=== PATIENT | female | born 1955 | race American Indian/Alaskan Native ===

== ENCOUNTER 2020-09-24 00:01 | Inpatient (IN) | payer MEDICARE ==
[2020-09-24] MEDS ORDERED: ASPIRIN 325 MG TAB PO ONE (01:15)
--- NOTE | 2020-09-24 01:53 | XRay Report ---
CHEST 1 VIEW INDICATION: Shortness of breath COMPARISON: FINDINGS: SUPPORT DEVICES: None. HEART / MEDIASTINUM: No significant abnormality. LUNGS / PLEURA: Airspace process left lower lobe with associated left pleural effusion No pneumothora x. ADDITIONAL FINDINGS: IMPRESSION: 1. Left lower lobe pneumonia with associated left pleural effusion Signer Name: Matthew Mcneal MD Signed: 09/24/2020 1:48 AM Workstation Name: [id number]
[2020-09-24 02:07] LABS: Basophils # (Auto) 0.1 K/mm3 (0.0-0.1); Basophils % (Auto) 1.3 % (0.0-1.8); Eosinophils # (Auto) 0.1 K/mm3 (0.0-0.4); Eosinophils % (Auto) 0.6 % (0.0-4.3); Hematocrit 43.7 % (30.3-42.9); Hemoglobin 14.5 gm/dl (10.1-14.3); Lymphocytes # (Auto) 2.2 K/mm3 (1.2-5.4); Lymphocytes % (Auto) 22.9 % (13.4-35.0); Mean Corpuscular HGB Conc 33 % (30-34); Mean Corpuscular Volume 93 fl (79-97); Monocytes # (Auto) 1.1 K/mm3 (0.0-0.8); Monocytes % (Auto) 11.4 % (0.0-7.3); Red Blood Count 4.71 M/mm3 (3.65-5.03); Red Cell Distribution Width 15.8 % (13.2-15.2)
[2020-09-24 02:30] LABS: Albumin 2.9 g/dL (3.9-5); Calcium 8.5 mg/dL (8.4-10.2)
[2020-09-24 02:38] LABS: Platelet Count 412 K/mm3 (140-440)
[2020-09-24 02:49] LABS: C-Reactive Protein 3.3 mg/dL (0.00-1.30)
[2020-09-24 03:12] LABS: Chol/HDL Ratio 3.92 %
[2020-09-24] MEDS ORDERED: ASPIRIN 81 MG TAB CHEW PO ONE (03:26)
--- NOTE | 2020-09-24 03:26 | Emergency Department Report ---
ED General Adult HPI - General Chief complaint: Dyspnea/Respdistress Stated complaint: DYSPNEA PUI?: Yes Time Seen by Provider: 09/24/20 03:13 Source: patient, RN notes reviewed Mode of arrival: Wheelchair Limitations: Physical Limitation - History of Present Illness Initial comments: The patient was evaluated in the emergency department for symptoms described in the history of present illness. He/she was evaluated in the context of the global COVID-19 pandemic, which necessitated consideration that the patient might be at risk for infection with the virus that causes COVID-19. Institutional protocols and algorithms that pertain to the evaluation of patients at risk for COVID-19 are in a state of rapid change based on information released by regulatory bodies including the CDC and federal and state organizations. These policies and algorithms were followed during the patient's care in the emergency department. Please note that these policies, procedures and recommendations changed on a rapid basis. During the entire history and physical examination, I have on complete personal protective equipment. The patient is a 65-year-old female. She is visiting from [place]. Her past medical history includes arthritis, renal cancer, distant history of left nephrectomy, diabetes, migraines, heart disease/angina, hypertension, distant history of exploratory laparotomy secondary to traumatic accident. Patient has not had her COVID-19 vaccination. She presents to the ER with a complaint of shortness of breath, lower extremity swelling, left upper quadrant/left lateral thorax abdominal pain. She is not sure if she has had loss of taste or smell. She recently drove here from [place]. Denies headache and neck pain. Denies lower abdominal pain. Denies hematemesis and bright red blood per rectum. Does not have central chest pain per se. -: Gradual, days(s) Location: chest (Left lateral thorax), abdomen Radiation: non-radiation Quality: aching Consistency: constant Improves with: rest Worsens with: movement - Related Data Allergies Allergy/AdvReac Type Severity Reaction Status Date / Time Penicillins Allergy Unknown Verified 09/24/20 00:55 ED Review of Systems ROS: Stated complaint: SOB/BACK PAIN/LOSS OF VISION Other details as noted in HPI Constitutional: malaise, weakness Eyes: denies: eye discharge ENT: congestion Respiratory: shortness of breath Cardiovascular: dyspnea on exertion Gastrointestinal: abdominal pain. denies: hematemesis, melena, hematochezia Genitourinary: denies: dysuria Musculoskeletal: myalgia Neurological: weakness Hematological/Lymphatic: denies: easy bleeding ED Past Medical Hx - Past Medical History Previous Medical History?: Yes Hx Hypertension: Yes Hx Heart Attack/AMI: Yes (Angina) Hx Diabetes: Yes Hx of Cancer: Yes (Renal- left kidney removed) Hx Arthritis: Yes Hx Headaches / Migraines: Yes Additional medical history: Takes Gabapentin for Nerve pain, Sepsis - Surgical History Past Surgical History?: Yes Additional Surgical History: Left kidney removed, Spleen removed, Abdominal surgery with Sepsis ED Physical Exam - General Limitations: Physical Limitation General appearance: alert, anxious, obese - Head Head exam: Present: atraumatic, normocephalic - Eye Eye exam: Present: normal appearance, EOMI. Absent: nystagmus - ENT ENT exam: Present: normal exam, normal orophraynx, mucous membranes moist, normal external ear exam - Neck Neck exam: Present: normal inspection, full ROM. Absent: tenderness, meningismus - Respiratory Respiratory exam: Present: other (Pulmonary auscultation not performed secondary to lack of disposable stethoscope) - Cardiovascular Cardiovascular Exam: Present: other (Cardiac auscultation not performed secondary to lack of disposable stethoscope) - GI/Abdominal GI/Abdominal exam: Present: soft. Absent: distended, tenderness, guarding, rebound, rigid, pulsatile mass - Extremities Exam Extremities exam: Present: normal inspection, full ROM, pedal edema (2+ edema in the bilateral lower extremities), other (2+ pulses noted in the bilateral upper and lower extremities. There is no palpable cord. negative Homans sign. Muscular compartments are soft. The pelvis is stable.). Absent: calf tenderness - Back Exam Back exam: Present: normal inspection. Absent: tenderness, CVA tenderness (R), CVA tenderness (L), paraspinal tenderness, vertebral tenderness - Neurological Exam Neurological exam: Present: alert, other (No facial droop. Tongue midline. Extraocular movements intact bilaterally. Facial sensation intact to light touch in V1, V2, V3 distribution bilaterally. 5 and a 5 strength in 4 extremiti es. Sensation intact to light touch in 4 extremities.) - Psychiatric Psychiatric exam: Present: normal affect, normal mood - Skin Skin exam: Present: warm, dry, intact, normal color. Absent: rash ED Course Vital Signs 09/24/20 09/24/20 09/24/20 00:39 03:16 03:30 Temperature 99.4 F Pulse Rate 91 H 84 88 Respiratory 18 22 19 Rate Blood Pressure 193/105 208/94 208/94 O2 Sat by Pulse 87 95 Oximetry 09/24/20 09/24/20 09/24/20 03:46 03:57 04:00 Temperature Pulse Rate 90 86 Respiratory 12 19 13 Rate Blood Pressure 208/94 190/118 O2 Sat by Pulse 96 91 Oximetry 09/24/20 09/24/20 09/24/20 04:16 04:29 04:30 Temperature 98.5 F Pulse Rate 84 86 Respiratory 13 13 Rate Blood Pressure 220/114 220/114 O2 Sat by Pulse 89 87 Oximetry 09/24/20 09/24/20 09/24/20 04:45 04:46 04:51 Temperature Pulse Rate 83 84 Respiratory 24 16 Rate Blood Pressure 220/114 220/114 O2 Sat by Pulse 97 Oximetry 09/24/20 09/24/20 05:00 05:16 Temperature Pulse Rate 89 85 Respiratory 22 18 Rate Blood Pressure 200/100 179/78 O2 Sat by Pulse 88 94 Oximetry - Reevaluation(s) Reevaluation #1: 09/24/20 04:34 DVT study preliminarily negative Reevaluation #2: 09/24/20 05:34 DVT study negative ED Medical Decision Making - Lab Data Result diagrams: 09/24/20 01:24 09/24/20 01:47 Vital Signs 09/24/20 00:39 Temperature 99.4 F Pulse Rate 91 H Respiratory 18 Rate Blood Pressure 193/105 O2 Sat by Pulse 87 Oximetry Lab Results 09/24/20 09/24/20 09/24/20 Range/Units 01:24 01:24 01:47 WBC 9.4 (4.5-11.0) K/mm3 RBC 4.71 (3.65-5.03) M/mm3 Hgb 14.5 H (10.1-14.3) gm/dl Hct 43.7 H (30.3-42.9) % MCV 93 (79-97) fl MCH 31 (28-32) pg MCHC 33 (30-34) % RDW 15.8 H (13.2-15.2) % Plt Count 412 (140-440) K/mm3 Lymph % (Auto) 22.9 (13.4-35.0) % [place] % (Auto) 11.4 H (0.0-7.3) % Eos % (Auto) 0.6 (0.0-4.3) % Baso % (Auto) 1.3 (0.0-1.8) % Lymph # (Auto) 2.2 (1.2-5.4) K/mm3 [place] # (Auto) 1.1 H (0.0-0.8) K/mm3 Eos # (Auto) 0.1 (0.0-0.4) K/mm3 Baso # (Auto) 0.1 (0.0-0.1) K/mm3 Seg Neutrophils % 63.8 (40.0-70.0) % Seg Neutrophils # 6.0 (1.8-7.7) K/mm3 D-Dimer 804.52 H (0-234) ng/mlDDU Sodium 144 (137-145) mmol/L Potassium 3.9 (3.6-5.0) mmol/L Chloride 105.2 (98-107) mmol/L Carbon Dioxide 27 (22-30) mmol/L Anion Gap 16 mmol/L BUN 14 (7-17) mg/dL Creatinine 1.1 (0.6-1.2) mg/dL Estimated GFR 60 ml/min BUN/Creatinine Ratio 13 % Glucose 210 H (65-100) mg/dL Calcium 8.5 (8.4-10.2) mg/dL Magnesium (1.7-2.3) mg/dL Ferritin (10.0-200.0) ng/mL Total Bilirubin 0.30 (0.1-1.2) mg/dL AST 15 (5-40) units/L ALT 16 (7-56) units/L Alkaline Phosphatase 123 (35-129) units/L Lactate Dehydrogenase (91-180) units/L Total Creatine Kinase (30-135) units/L Troponin T 0.350 H* (0.00-0.029) ng/mL C-Reactive Protein (0.00-1.30) mg/dL NT-Pro-B Natriuret Pep (0-900) pg/mL Total Protein 5.9 L (6.3-8.2) g/dL Albumin 2.9 L (3.9-5) g/dL Albumin/Globulin Ratio 1.0 % Triglycerides 123 (2-149) mg/dL Cholesterol 224 H (50-199) mg/dL LDL Cholesterol Direct 155 H (50-130) mg/dL HDL Cholesterol 57 (40-59) mg/dL Cholesterol/HDL Ratio 3.92 % 09/24/20 09/24/20 Range/Units 01:47 01:47 WBC (4.5-11.0) K/mm3 RBC (3.65-5.03) M/mm3 Hgb (10.1-14.3) gm/dl Hct (30.3-42.9) % MCV (79-97) fl MCH (28-32) pg MCHC (30-34) % RDW (13.2-15.2) % Plt Count (140-440) K/mm3 Lymph % (Auto) (13.4-35.0) % [place] % (Auto) (0.0-7.3) % Eos % (Auto) (0.0-4.3) % Baso % (Auto) (0.0-1.8) % Lymph # (Auto) (1.2-5.4) K/mm3 [place] # (Auto) (0.0-0.8) K/mm3 Eos # (Auto) (0.0-0.4) K/mm3 Baso # (Auto) (0.0-0.1) K/mm3 Seg Neutrophils % (40.0-70.0) % Seg Neutrophils # (1.8-7.7) K/mm3 D-Dimer (0-234) ng/mlDDU Sodium (137-145) mmol/L Potassium (3.6-5.0) mmol/L Chloride (98-107) mmol/L Carbon Dioxide (22-30) mmol/L Anion Gap mmol/L BUN (7-17) mg/dL Creatinine (0.6-1.2) mg/dL Estimated GFR ml/min BUN/Creatinine Ratio % Glucose 221 H (65-100) mg/dL Calcium (8.4-10.2) mg/dL Magnesium 1.80 (1.7-2.3) mg/dL Ferritin 31.5 (10.0-200.0) ng/mL Total Bilirubin (0.1-1.2) mg/dL AST (5-40) units/L ALT (7-56) units/L Alkaline Phosphatase (35-129) units/L Lactate Dehydrogenase 344 H (91-180) units/L Total Creatine Kinase 102 (30-135) units/L Troponin T (0.00-0.029) ng/mL C-Reactive Protein 3.30 H (0.00-1.30) mg/dL NT-Pro-B Natriuret Pep 8271 H (0-900) pg/mL Total Protein (6.3-8.2) g/dL Albumin (3.9-5) g/dL Albumin/Globulin Ratio % Triglycerides (2-149) mg/dL Cholesterol (50-199) mg/dL LDL Cholesterol Direct (50-130) mg/dL HDL Cholesterol (40-59) mg/dL Cholesterol/HDL Ratio % - EKG Data -: EKG Interpreted by Ok EKG shows normal: sinus rhythm Rate: normal - EKG Data When compared to previous EKG there are: previous EKG unavailable 09/24/20 03:25 EKG interpreted at 01: 57 Sinus rhythm, 85 bpm. Borderline leftward axis deviation, left ventricular hypertrophy, atrial enlargement, motion artifact, not a STEMI, no prior for comparison. DE interval within normal limits. - Radiology Data Radiology results: report reviewed, image reviewed [facility] [address] [place] [address] XRay Report Signed Patient: YAA WRIGHT MR#: [id number] : 1955 Acct:[id number] Age/Sex: 65 / F ADM Date: 09/24/20 Loc: ED Attending Dr: Ordering Physician: JOSAFAT LIANG MD Date of Service: 09/24/20 Procedure(s): XR chest 1V ap Accession Number(s): [id number] cc: JOSAFAT LIANG MD Fluoro Time In Minutes: CHEST 1 VIEW INDICATION: Shortness of breath COMPARISON: FINDINGS: SUPPORT DEVICES: None. HEART / MEDIASTINUM: No significant abnormality. LUNGS / PLEURA: Airspace process left lower lobe with associated left pleural effusion No pneumothorax. ADDITIONAL FINDINGS: IMPRESSION: 1. Left lower lobe pneumonia with associated left pleural effusion Signer Name: Matthew Mcneal MD Signed: 09/24/2020 1:48 AM Workstation Name: [id number] Transcribed By: SANTA Dictated By: Matthew Mcneal MD Electronically Authenticated By: Matthew Mcneal MD Signed Date/Time: 09/24/20147 DD/ 7 - Medical Decision Making Differential diagnosis, including but not limited to: Pneumonia, COVID-19, DVT, pulmonary embolism, cardiomyopathy, fluid overload, hypertension, hypertensive cardiomyopathy, type II troponin leak, hypoxic respiratory failure Assessment and plan: 65-year-old female with low-grade temperature, acute hypoxic respiratory failure, large left-sided pneumonia with pleural effusion on x-ray the chest, with hypertension, elevated troponin, no complaints of ischemic sounding chest pain, abnormal EKG, elevated proBNP, and lower extremity edema. Place patient on classroom monitor, IV access, supplemental oxygen, obtain appropriate laboratory studies, and initiate isolation. Start aspirin, unfractionated heparin, antihypertensive therapy for elevated t roponin, and hypertension. Admit patient to the medical service for the aforementioned. Start steroids, administer Levaquin, and start acetaminophen. Have discussed this plan of care with the patient for admission for the aforementioned. We will also obtain bilateral lower extremity DVT study. Patient has history of nephrectomy, therefore she only has 1 kidney. In addition, she is in acute respiratory distress, and is not able to lay flat. Therefore, patient will need to be medically optimized/stabilized, prior to acquisition of CT scan of the chest, or nuclear medicine study; we will defer to inpatient team to decide what thoracic imaging they would like to obtain, if any. Patient does meet criteria for admission and hospitalization secondary to the aforementioned. Patient is amenable to admission. Hospital physician, Dr. Valdes, to admit to [facility] Critical Care Time: Yes Critical care time in (mins) excluding proc time.: 35 Critical care attestation.: If time is entered above; I have spent that time in minutes in the direct care of this critically ill patient, excluding procedure time. ED Disposition Clinical Impression: Acute respiratory failure with hypoxia, Left lower lobe pneumonia, Suspected COVID-19 virus infection, Elevated troponin, Swelling of lower extremity Disposition: OP ADMIT IP TO THIS HOSP Is pt being admited?: Yes Does the pt Need Aspirin: Yes Condition: Stable
[2020-09-24] MEDS ORDERED: HEPARIN 10,000 UNITS/10 ML VIAL IV PRN (03:27)
[2020-09-24] MEDS ORDERED: ACETAMINOPHEN 325 MG TAB PO STA (03:27)
[2020-09-24] MEDS ORDERED: HEPARIN 10,000 UNITS/10 ML VIAL IV ONE (03:27)
[2020-09-24] MEDS ORDERED: dexAMETHasone 4 MG/ML VIAL IV ONE (03:27)
[2020-09-24] MEDS: HEPARIN/ 0.45% NACL DRIP 25,000 UNIT/500 ML BAG IV SCH (03:48)
[2020-09-24 04:02] LABS: INR 0.95 (0.87-1.13)
[2020-09-24 04:03] LABS: Partial Thromboplastin Time 28.3 Sec. (24.2-36.6)
[2020-09-24] MEDS ORDERED: hydrALAZINE 20 MG/1 ML INJ IV ONE (04:28)
[2020-09-24] MEDS ORDERED: FUROSEMIDE 20 MG/2 ML INJ IV ONE (04:28)
[2020-09-24] MEDS ORDERED: DEXTROSE 50% IN WATER (25GM) 50 ML SYRINGE IV PRN (05:09)
[2020-09-24] MEDS ORDERED: ACETAMINOPHEN 325 MG TAB PO PRN ×2 (05:09)
[2020-09-24] MEDS ORDERED: ALBUTEROL 2.5 MG/3 ML NEBU IH PRN (05:09)
[2020-09-24] MEDS ORDERED: NITROGLYCERIN 0.4 MG TAB SUBL SL PRN (05:09)
[2020-09-24] MEDS ORDERED: ONDANSETRON 4 MG/2 ML INJ IV PRN (05:09)
[2020-09-24] MEDS ORDERED: hydrALAZINE 20 MG/1 ML INJ IV PRN (05:14)
--- NOTE | 2020-09-24 05:19 | History and Physical Report ---
History of Present Illness Date of examination: 09/24/20 Date of admission: 09/24/20 04:33 Chief complaint: Dyspnea respiratory distress History of present illness: 65-year-old female with past medical history includes arthritis, renal cancer, distant history of left nephrectomy, diabetes, migraines, heart disease/angina, hypertension, distant history of exploratory laparotomy secondary to traumatic accident was brought to the emergency room because of shortness of breath, lower extremity swelling, left upper quadrant/left lateral thorax abdominal pain. She is not sure if she has had loss of taste or smell. She recently drove here from [place]. Denies headache and neck pain. Denies lower abdominal pain. Denies hematemesis and bright red blood per rectum. Patient has not had her COVID-19 vaccination. In the emergency room patient is found to have acute hypoxic respiratory failure. Also patient troponin is 0.350 proBNP 8271 and C-reactive protein 3.30. Chest x-ray shows left lower lobe pneumonia with associated left pleural effusion Past History Past Medical History: arthritis, CAD, diabetes, hypertension (Renal cancer status post left nephrectomy distant history of exploratory laparotomy), other (Renal cancer left nephrectomy) Medications and Allergies Allergies Allergy/AdvReac Type Severity Reaction Status Date / Time Penicillins Allergy Unknown Verified 09/24/20 00:55 Active Meds: Active Medications Heparin Sodium (Porcine) (Heparin 10,000 Units/10 Ml Vial) 3,000 unit 40 unit/kg (3000 unit) IV Q6H PRN PRN Reason: Anti-Xa Assay < 0.1 units/ml Heparin Sodium/Sodium Chloride (Heparin/ 0.45% Nacl-25,000 Unit/500 Ml) 25,000 unit in 500 mls @ 20 mls/hr IV TITRATE ANG; Protocol Last Admin: 09/24/20 03:48 Dose: 1,000 units/hr, 20 mls/hr Documented by: Review of Systems Cardiovascular: shortness of breath, dyspnea on exertion Respiratory: shortness of breath, dyspnea on exertion Gastrointestinal: abdominal pain Exam - Constitutional Vitals: Temp Pulse Resp BP Pulse Ox 98.5 F 89 22 200/100 88 09/24/20 04:29 09/24/20 05:00 09/24/20 05:00 09/24/20 05:00 09/24/20 05:00 General appearance: Present: no acute distress, well-nourished - EENT Eyes: Present: PERRL ENT: hearing intact, clear oral mucosa - Neck Neck: Present: supple, normal ROM - Respiratory Respiratory effort: normal Respiratory: bilateral: CTA - Cardiovascular Heart Sounds: Present: S1 & S2. Absent: rub, click - Extremities Extremities: pulses symmetrical, No edema Peripheral Pulses: within normal limits - Abdominal General gastrointestinal: Present: soft, non-tender, non-distended, normal bowel sounds Female genitourinary: Present: normal - Integumentary Integumentary: Present: clear, warm, dry - Musculoskeletal Musculoskeletal: gait normal, strength equal bilaterally - Psychiatric Psychiatric: appropriate mood/affect, intact judgment & insight - Neurologic Neurologic: CNII-XII intact, moves all extremities HEART Score - HEART Score Troponin: Troponin T 0.350 ng/mL (0.00-0.029) H* 09/24/20 01:24 Results - Labs CBC & Chem 7: 09/24/20 01:24 09/24/20 01:47 Labs: Laboratory Last Values WBC 9.4 K/mm3 (4.5-11.0) 09/24/20 01:24 RBC 4.71 M/mm3 (3.65-5.03) 09/24/20 01:24 Hgb 14.5 gm/dl (10.1-14.3) H 09/24/20 01:24 Hct 43.7 % (30.3-42.9) H 09/24/20 01:24 MCV 93 fl (79-97) 09/24/20 01:24 MCH 31 pg (28-32) 09/24/20 01:24 MCHC 33 % (30-34) 09/24/20 01:24 RDW 15.8 % (13.2-15.2) H 09/24/20 01:24 Plt Count 412 K/mm3 (140-440) 09/24/20 01:24 Lymph % (Auto) 22.9 % (13.4-35.0) 09/24/20 01:24 [place] % (Auto) 11.4 % (0.0-7.3) H 09/24/20 01:24 Eos % (Auto) 0.6 % (0.0-4.3) 09/24/20 01:24 Baso % (Auto) 1.3 % (0.0-1.8) 09/24/20 01:24 Lymph # (Auto) 2.2 K/mm3 (1.2-5.4) 09/24/20 01:24 [place] # (Auto) 1.1 K/mm3 (0.0-0.8) H 09/24/20 01:24 Eos # (Auto) 0.1 K/mm3 (0.0-0.4) 09/24/20 01:24 Baso # (Auto) 0.1 K/mm3 (0.0-0.1) 09/24/20 01:24 Seg Neutrophils % 63.8 % (40.0-70.0) 09/24/20 01:24 Seg Neutrophils # 6.0 K/mm3 (1.8-7.7) 09/24/20 01:24 PT 12.6 Sec. (12.2-14.9) 09/24/20 03:37 INR 0.95 (0.87-1.13) 09/24/20 03:37 APTT 28.3 Sec. (24.2-36.6) 09/24/20 03:37 D-Dimer 804.52 ng/mlDDU (0-234) H 09/24/20 01:47 Sodium 144 mmol/L (137-145) 09/24/20 01:24 Potassium 3.9 mmol/L (3.6-5.0) 09/24/20 01:24 Chloride 105.2 mmol/L (98-107) 09/24/20 01:24 Carbon Dioxide 27 mmol/L (22-30) 09/24/20 01:24 Anion Gap 16 mmol/L 09/24/20 01:24 BUN 14 mg/dL (7-17) 09/24/20 01:24 Creatinine 1.1 mg/dL (0.6-1.2) 09/24/20 01:24 Estimated GFR 60 ml/min 09/24/20 01:24 BUN/Creatinine Ratio 13 % 09/24/20 01:24 Glucose 221 mg/dL (65-100) H 09/24/20 01:47 Lactic Acid 1.40 mmol/L (0.7-2.0) 09/24/20 03:37 Calcium 8.5 mg/dL (8.4-10.2) 09/24/20 01:24 Magnesium 1.80 mg/dL (1.7-2.3) 09/24/20 01:47 Ferritin 31.5 ng/mL (10.0-200.0) 09/24/20 01:47 Total Bilirubin 0.30 mg/dL (0.1-1.2) 09/24/20 01:24 AST 15 units/L (5-40) 09/24/20 01:24 ALT 16 units/L (7-56) 09/24/20 01:24 Alkaline Phosphatase 123 units/L (35-129) 09/24/20 01:24 Lactate Dehydrogenase 344 units/L (91-180) H 09/24/20 01:47 Total Creatine Kinase 102 units/L (30-135) 09/24/20 01:47 Troponin T 0.350 ng/mL (0.00-0.029) H* 09/24/20 01:24 C-Reactive Protein 3.30 mg/dL (0.00-1.30) H 09/24/20 01:47 NT-Pro-B Natriuret Pep 8271 pg/mL (0-900) H 09/24/20 01:47 Total Protein 5.9 g/dL (6.3-8.2) L 09/24/20 01:24 Albumin 2.9 g/dL (3.9-5) L 09/24/20 01:24 Albumin/Globulin Ratio 1.0 % 09/24/20 01:24 Triglycerides 123 mg/dL (2-149) 09/24/20 01:24 Cholesterol 224 mg/dL (50-199) H 09/24/20 01:24 LDL Cholesterol Direct 155 mg/dL (50-130) H 09/24/20 01:24 HDL Cholesterol 57 mg/dL (40-59) 09/24/20 01:24 Cholesterol/HDL Ratio 3.92 % 09/24/20 01:24 - Imaging and Cardiology Chest x-ray: report reviewed Assessment and Plan VTE prophylaxis?: Chemical Plan of care discussed with patient/family: Yes - Patient Problems (1) Acute respiratory failure with hypoxia Current Visit: Yes Status: Acute Plan to address problem: Admit the patient to the medical telemetry. Oxygen via nasal cannula 3 L/min. DuoNeb by nebulizer every 4 hours as needed. Levaquin 750 mg IV daily. Dexamethasone 6 mg IV daily. We will consult infectious disease for evaluation. Consult pulmonary if needed (2) Left lower lobe pneumonia Current Visit: Yes Status: Acute Plan to address problem: Oxygen via nasal cannula 3 L/min. DuoNeb by nebulizer every 4 hours as needed. Levaquin 750 mg IV daily. Dexamethasone 6 mg IV daily. We will consult infectious disease for evaluation. Consult pulmonary if needed (3) Suspected COVID-19 virus infection Current Visit: Yes Status: Acute Plan to address problem: Oxygen via nasal cannula 3 L/min. DuoNeb by nebulizer every 4 hours as needed. Levaquin 750 mg IV daily. Dexamethasone 6 mg IV daily. We will consult infectious disease for evaluation. Consult pulmonary if needed (4) Elevated troponin Current Visit: Yes Status: Acute Plan to address problem: Aspirin 325 mg p.o. daily. Lipitor 40 mg p.o. daily. Nitroglycerin as needed. Heparin drip as per protocol .we do the serial cardiac enzyme. We also do echocardiogram and consult cardiology for evaluation (5) Hypertension Current Visit: Yes Status: Acute Plan to address problem: Hydralazine 10 mg IV every 6 hours as needed. We will monitor the blood pressure closely. (6) Diabetes Current Visit: Yes Status: Acute Plan to address problem: We will put the patient on 1800 kcal ADA diet. Humalog sliding scale moderate d ose with Accu-Chek before meals and at bedtime. Diabetic education (7) DVT prophylaxis Current Visit: Yes Status: Acute Plan to address problem: Heparin drip for DVT prophylaxis. Pepcid 20 mg p.o. twice daily for GI prophylaxis. Patient is a full code
--- NOTE | 2020-09-24 05:27 | Vascular Lab Report ---
DUPLEX DOPPLER LOWER EXTREMITY VEINS, BILATERAL INDICATION / CLINICAL INFORMATION: lower ext swelling + d dimer. TECHNIQUE: Duplex doppler imaging was performed through the veins of both lower extremities using venous starr gurvinder and other maneuvers. COMPARISON: None available. FINDINGS: RIGHT COMMON FEMORAL VEIN: Negative. RIGHT FEMORAL VEIN: Negative. RIGHT POPLITEAL VEIN: Negative. RIGHT CALF VEINS: Negative. LEFT COMMON FEMORAL VEIN: Negative. LEFT FEMORAL VEIN: Negative. LEFT POPLITEAL VEIN: Negative. LEFT CALF VEINS: Negative. ADDITIONAL FINDINGS: Bilateral popliteal cyst are present, 3.9 cm on the right and 4.5 cm on the left . IMPRESSION: 1. No sonographic evidence for DVT in either lower extremity. Signer Name: Matthew Mcneal MD Signed: 09/24/2020 5:22 AM Workstation Name: [id number]
[2020-09-24] MEDS ORDERED: cefTRIAXone/NS 2 GM/100 ML 2 GM/100 ML BAG IV SCH (06:00)
[2020-09-24] MEDS ORDERED: HEPARIN 5,000 UNIT/1 ML VIAL SUB-Q SCH (06:00)
[2020-09-24] MEDS ORDERED: AZITHROMYCIN/NS 500 MG/250 ML 500 MG/250 ML BAG IV SCH (06:00)
[2020-09-24 06:47] LABS: Basophils # (Auto) 0.1 K/mm3 (0.0-0.1); Eosinophils # (Auto) 0.1 K/mm3 (0.0-0.4); Eosinophils % (Auto) 0.6 % (0.0-4.3); Hematocrit 44.5 % (30.3-42.9); Hemoglobin 14.5 gm/dl (10.1-14.3); Lymphocytes # (Auto) 0.8 K/mm3 (1.2-5.4); Lymphocytes % (Auto) 7.9 % (13.4-35.0); Mean Corpuscular HGB Conc 33 % (30-34); Mean Corpuscular Volume 91 fl (79-97); Monocytes # (Auto) 0.2 K/mm3 (0.0-0.8); Monocytes % (Auto) 2.3 % (0.0-7.3); Red Blood Count 4.87 M/mm3 (3.65-5.03); Red Cell Distribution Width 15.1 % (13.2-15.2)
[2020-09-24 06:55] LABS: Platelet Count 436 K/mm3 (140-440)
[2020-09-24 06:59] LABS: BUN/Creatinine Ratio 14; Blood Urea Nitrogen 14 mg/dL (7-17); Hemolysis Index 4
[2020-09-24] MEDS: IPRATROPIUM/ALBUTEROL SULFATE 3 ML AMPUL.NEB IH SCH ×3 (08:51→19:32)
--- NOTE | 2020-09-24 10:28 | Progress Note ---
Assessment and Plan Assessment and plan: -- Acute respiratory failure with hypoxia Current Visit: Yes Status: Acute Oxygen via nasal cannula 3 L/min. DuoNeb by nebulizer every 4 hours as needed. Levaquin 750 mg IV daily. Dexamethasone 6 mg IV daily. Evaluate for COVID-19 --Left lower lobe pneumonia Current Visit: Yes Status: Acute Oxygen via nasal cannula 3 L/min. Empiric antibiotics, inhalers and nebulizers Follow cultures supportive care -- Suspected COVID-19 virus infection Current Visit: Yes Status: Acute Isolation precautions and PPE protocols oxygen via nasal cannula 3 L/min. Home O2 evaluation at discharge --Non-ST elevation ID ;elevated troponin Current Visit: Yes Status: Acute Aspirin 325 mg p.o. daily. Beta-blockers ,Lipitor 40 mg p.o. daily. Nitroglycerin as needed. Heparin drip as per protocol .cardiology evaluation noted and appreciated Recommend left heart catheterization ,if COVID-19 is negative and patient CTA chest is negative --Hypertension Current Visit: Yes Status: Acute Hydralazine 10 mg IV every 6 hours as needed. We will monitor the blood pressure closely. --Type II diabetes Current Visit: Yes Status: Acute Accu-Chek sliding scale coverage ADA diet and insulin as needed Diabetic education nutrition education as indicated --DVT prophylaxis Current Visit: Yes Status: Acute Heparin drip for DVT prophylaxis. Pepcid 20 mg p.o. twice daily for GI prophylaxis. Patient is a full code Monitor the patient and adjust management as needed Plan of care reviewed with the patient and his nurse I also discussed with senior telecommunications engineer Dr. Sunny Hua Plans heart cath tomorrow if CTA chest is normal and Covid test is negative History Interval history: I have seen and examined the patient at the bedside Patient's chart and medications reviewed patient was Patient is confused and agitated at times Not in acute distress Vital signs stable Hospitalist Physical - Constitutional Vitals: Temp Pulse Resp BP Pulse Ox 98.5 F 82 16 179/78 92 09/24/20 04:29 09/24/20 08:50 09/24/20 08:50 09/24/20 05:16 09/24/20 08:51 General appearance: Present: no acute distress, well-nourished - EENT Eyes: Present: PERRL, EOM intact - Neck Neck: Present: supple, normal ROM - Respiratory Respiratory effort: normal Respiratory: bilateral: diminished, negative: rales, rhonchi, wheezing - Cardiovascular Rhythm: regular Heart Sounds: Present: S1 & S2 - Extremities Extremities: no ischemia, No edema - Abdominal General gastrointestinal: soft, non-tender, non-distended, normal bowel sounds - Integumentary Integumentary: Present: clear, warm - Psychiatric Psychiatric: appropriate mood/affect, cooperative - Neurologic Neurologic: CNII-XII intact, moves all extremities HEART Score - HEART Score Troponin: Troponin T 0.350 ng/mL (0.00-0.029) H* 09/24/20 01:24 Results - Labs CBC & Chem 7: 09/24/20 06:18 09/24/20 06:18 Labs: Laboratory Last Values WBC 10.0 K/mm3 (4.5-11.0) 09/24/20 06:18 RBC 4.87 M/mm3 (3.65-5.03) 09/24/20 06:18 Hgb 14.5 gm/dl (10.1-14.3) H 09/24/20 06:18 Hct 44.5 % (30.3-42.9) H 09/24/20 06:18 MCV 91 fl (79-97) 09/24/20 06:18 MCH 30 pg (28-32) 09/24/20 06:18 MCHC 33 % (30-34) 09/24/20 06:18 RDW 15.1 % (13.2-15.2) 09/24/20 06:18 Plt Count 436 K/mm3 (140-440) 09/24/20 06:18 Lymph % (Auto) 7.9 % (13.4-35.0) L 09/24/20 06:18 [place] % (Auto) 2.3 % (0.0-7.3) 09/24/20 06:18 Eos % (Auto) 0.6 % (0.0-4.3) 09/24/20 06:18 Baso % (Auto) 1.0 % (0.0-1.8) 09/24/20 06:18 Lymph # (Auto) 0.8 K/mm3 (1.2-5.4) L 09/24/20 06:18 [place] # (Auto) 0.2 K/mm3 (0.0-0.8) 09/24/20 06:18 Eos # (Auto) 0.1 K/mm3 (0.0-0.4) 09/24/20 06:18 Baso # (Auto) 0.1 K/mm3 (0.0-0.1) 09/24/20 06:18 Seg Neutrophils % 88.2 % (40.0-70.0) H 09/24/20 06:18 Seg Neutrophils # 8.8 K/mm3 (1.8-7.7) H 09/24/20 06:18 PT 12.6 Sec. (12.2-14.9) 09/24/20 03:37 INR 0.95 (0.87-1.13) 09/24/20 03:37 APTT 28.3 Sec. (24.2-36.6) 09/24/20 03:37 D-Dimer 804.52 ng/mlDDU (0-234) H 09/24/20 01:47 Sodium 139 mmol/L (137-145) 09/24/20 06:18 Potassium 3.1 mmol/L (3.6-5.0) L D 09/24/20 06:18 Chloride 101.6 mmol/L (98-107) 09/24/20 06:18 Carbon Dioxide 27 mmol/L (22-30) 09/24/20 06:18 Anion Gap 14 mmol/L 09/24/20 06:18 BUN 14 mg/dL (7-17) 09/24/20 06:18 Creatinine 1.0 mg/dL (0.6-1.2) 09/24/20 06:18 Estimated GFR > 60 ml/min 09/24/20 06:18 BUN/Creatinine Ratio 14 % 09/24/20 06:18 Glucose 274 mg/dL (65-100) H 09/24/20 06:18 Lactic Acid 1.40 mmol/L (0.7-2.0) 09/24/20 03:37 Calcium 8.0 mg/dL (8.4-10.2) L 09/24/20 06:18 Magnesium 1.80 mg/dL (1.7-2.3) 09/24/20 01:47 Ferritin 31.5 ng/mL (10.0-200.0) 09/24/20 01:47 Total Bilirubin 0.30 mg/dL (0.1-1.2) 09/24/20 01:24 AST 15 units/L (5-40) 09/24/20 01:24 ALT 16 units/L (7-56) 09/24/20 01:24 Alkaline Phosphatase 123 units/L (35-129) 09/24/20 01:24 Lactate Dehydrogenase 344 units/L (91-180) H 09/24/20 01:47 Total Creatine Kinase 102 units/L (30-135) 09/24/20 01:47 Troponin T 0.350 ng/mL (0.00-0.029) H* 09/24/20 01:24 C-Reactive Protein 3.30 mg/dL (0.00-1.30) H 09/24/20 01:47 NT-Pro-B Natriuret Pep 8271 pg/mL (0-900) H 09/24/20 01:47 Total Protein 5.9 g/dL (6.3-8.2) L 09/24/20 01:24 Albumin 2.9 g/dL (3.9-5) L 09/24/20 01:24 Albumin/Globulin Ratio 1.0 % 09/24/20 01:24 Triglycerides 123 mg/dL (2-149) 09/24/20 01:24 Cholesterol 224 mg/dL (50-199) H 09/24/20 01:24 LDL Cholesterol Direct 155 mg/dL (50-130) H 09/24/20 01:24 HDL Cholesterol 57 mg/dL (40-59) 09/24/20 01:24 Cholesterol/HDL Ratio 3.92 % 09/24/20 01:24 Procalcitonin < 0.05 ng/mL (<0.15) 09/24/20 01:47 Active Medications - Current Medications Current Medications: Generic Name Dose Route Start Last Admin Trade Name Freq PRN Reason Stop Dose Admin Acetaminophen 650 mg 09/24/20 05:09 Acetaminophen 325 Mg Tab PO Q4H PRN Pain MILD(1-3)/Fever >100.5/JJ Albuterol 2.5 mg 09/24/20 05:09 Albuterol 2.5 Mg/3 Ml Nebu IH Q3HRT PRN Shortness Of Breath Albuterol/Ipratropium 1 ampul 09/24/20 08:00 09/24/20 08:51 Ipratropium/Albuterol Sulfate 3 Ml Ampul.Neb IH 1 ampul Q6HRT [facility] Administration Aspirin 325 mg 09/25/20 10:00 Aspirin Ec 325 Mg Tab PO QDAY [facility] Atorvastatin Calcium 40 mg 09/24/20 22:00 Atorvastatin 40 Mg Tab PO QHS [facility] Dexamethasone 6 mg 09/24/20 10:00 Dexamethasone 4 Mg/Ml Vial IV 10/03/20 10:01 DAILY [facility] Dextrose 0 ml 09/24/20 05:09 Dextrose 50% In Water (25gm) 50 Ml Syringe IV Q30MIN PRN Hypoglycemia Protocol Famotidine 20 mg 09/24/20 10:00 Famotidine 20 Mg Tab PO BID [facility] Heparin Sodium (Porcine) 3,000 unit 09/24/20 03:27 Heparin 10,000 Units/10 Ml Vial 40 unit/kg (3000 unit) IV Q6H PRN Anti-Xa Assay < 0.1 units/ml Hydralazine HCl 10 mg 09/24/20 05:14 Hydralazine 20 Mg/1 Ml Inj IV Q6H PRN htn Heparin Sodium/Sodium Chloride 25,000 unit in 500 mls @ 20 mls/hr 09/24/20 04:00 09/24/20 03:48 Heparin/ 0.45% Nacl-25,000 Unit/500 Ml IV 1,000 units/hr TITRATE ANG 20 mls/hr Administration Protocol 1,000 UNITS/HR Levofloxacin/Dextrose 750 mg in 150 mls @ 100 mls/hr 09/24/20 06:00 Levaquin 750mg/150ml IV Q24H [facility] Protocol Insulin Human Lispro 0 unit 09/24/20 07:30 Insulin Lispro 100 Unit/Ml SUB-Q ACHS [facility] Protocol Morphine Sulfate 2 mg 09/24/20 05:09 Morphine 2 Mg/1 Ml Inj IV Q5MIN PRN Chest Pain Nitroglycerin 0.4 mg 09/24/20 05:09 Nitroglycerin 0.4 Mg Tab Subl SL Q5M PRN Chest Pain Ondansetron HCl 4 mg 09/24/20 05:09 Ondansetron 4 Mg/2 Ml Inj IV Q8H PRN Nausea And Vomiting Sodium Chloride 10 ml 09/24/20 10:00 Sodium Chloride 0.9% 10 Ml Flush Syringe IV BID [facility] Sodium Chloride 10 ml 09/24/20 05:09 Sodium Chloride 0.9% 10 Ml Flush Syringe IV PRN PRN LINE FLUSH Tramadol HCl 50 mg 09/24/20 05:09 Tramadol 50 Mg Tab PO Q6H PRN Pain, Moderate (4-6)
--- NOTE | 2020-09-24 10:54 | Event Note ---
Full consult dictated. Thank you.
--- NOTE | 2020-09-24 12:00 | Consultation ---
History of Present Illness - Reason for Consult Consult date: 09/24/20 Pneumonia Requesting physician: JOSAFAT LIANG - History of Present Illness The patient is a 65-year-old female with arthritis, CAD, hypertension, diabetes, renal cancer status post nephrectomy was admitted to the hospital with shortness of breath. Upon evaluation in the ER, noted to be hypoxic, CRP was 3.3, chest x-ray showed left lower lobe pneumonia. Infectious diseases was consulted for additional evaluation. COVID-19 PCR was obtained and is pending. Patient otherwise has been afebrile. Had some nausea but no vomiting, no diarrhea. No urinary burning. Smokes cigars. Labs revealed normal WBC, D-dimer 804, creatinine 1.0, LDH 344, ferritin 31.5, troponin 0 0.35, procalcitonin 0.05 Review of Systems: General: no fevers, had some chills prior to coming in HEENT: no new visual disturbance Respiratory: Cough, shortness of breath Cardiovascular: no chest pain, syncope Gastrointestinal: No nausea, vomiting or diarrhea Genitourinary: No dysuria or hematuria Musculoskeletal: No new or worsening neck pain or back pain Neurologic: No headaches, seizures Hematologic: No easy bruising or bleeding Endocrine: No night sweats or acute weight loss Skin: negative for rash, jaundice Psychiatric: No suicidal or homicidal ideation Past History Past Medical History: arthritis, CAD, diabetes, hypertension (Renal cancer status post left nephrectomy distant history of exploratory laparotomy), other (Renal cancer left nephrectomy) Medications and Allergies Allergies Allergy/AdvReac Type Severity Reaction Status Date / Time Penicillins Allergy Unknown Verified 09/24/20 00:55 Active Meds: Active Medications Acetaminophen (Acetaminophen 325 Mg Tab) 650 mg PO Q4H PRN PRN Reason: Pain MILD(1-3)/Fever >100.5/JJ Albuterol (Albuterol 2.5 Mg/3 Ml Nebu) 2.5 mg IH Q3HRT PRN PRN Reason: Shortness Of Breath Albuterol/Ipratropium (Ipratropium/Albuterol Sulfate 3 Ml Ampul.Neb) 1 ampul IH Q6HRT ANG Last Admin: 09/24/20 08:51 Dose: 1 ampul Documented by: Aspirin (Aspirin Ec 325 Mg Tab) 325 mg PO QDAY ANG Atorvastatin Calcium (Atorvastatin 40 Mg Tab) 40 mg PO QHS ANG Dexamethasone (Dexamethasone 4 Mg/Ml Vial) 6 mg IV DAILY [facility] Stop: 10/03/20 10:01 Dextrose (Dextrose 50% In Water (25gm) 50 Ml Syringe) 0 ml IV Q30MIN PRN; Protocol PRN Reason: Hypoglycemia Famotidine (Famotidine 20 Mg Tab) 20 mg PO BID [facility] Heparin Sodium (Porcine) (Heparin 10,000 Units/10 Ml Vial) 3,000 unit 40 unit/kg (3000 unit) IV Q6H PRN PRN Reason: Anti-Xa Assay < 0.1 units/ml Hydralazine HCl (Hydralazine 20 Mg/1 Ml Inj) 10 mg IV Q4H PRN PRN Reason: Hypertension Heparin Sodium/Sodium Chloride (Heparin/ 0.45% Nacl-25,000 Unit/500 Ml) 25,000 unit in 500 mls @ 20 mls/hr IV TITRATE [facility]; Protocol Last Admin: 09/24/20 03:48 Dose: 1,000 units/hr, 20 mls/hr Documented by: Levofloxacin/Dextrose (Levaquin 750mg/150ml) 750 mg in 150 mls @ 100 mls/hr IV Q24H [facility]; Protocol Insulin Human Lispro (Insulin Lispro 100 Unit/Ml) 0 unit SUB-Q ACHS [facility]; Protocol Metoprolol Tartrate (Metoprolol Tartrate 25 Mg Tab) 12.5 mg PO BID [facility] Morphine Sulfate (Morphine 2 Mg/1 Ml Inj) 2 mg IV Q5MIN PRN PRN Reason: Chest Pain Nitroglycerin (Nitroglycerin 0.4 Mg Tab Subl) 0.4 mg SL Q5M PRN PRN Reason: Chest Pain Ondansetron HCl (Ondansetron 4 Mg/2 Ml Inj) 4 mg IV Q8H PRN PRN Reason: Nausea And Vomiting Sodium Chloride (Sodium Chloride 0.9% 10 Ml Flush Syringe) 10 ml IV BID [facility] Sodium Chloride (Sodium Chloride 0.9% 10 Ml Flush Syringe) 10 ml IV PRN PRN PRN Reason: LINE FLUSH Tramadol HCl (Tramadol 50 Mg Tab) 50 mg PO Q6H PRN PRN Reason: Pain, Moderate (4-6) Physical Examination - Physical Exam Narrative exam: Physical Exam: Constitutional: Alert, cooperative. No acute distress Head, Ears, Nose: Normocephalic, atraumatic. External ears, nose normal Eyes: Conjunctivae/corneas clear. No icterus. No ptosis. Neck: Supple, no meningeal signs Cardiovascular: S1, S2 normal. Respiratory: few rhonchi GI: Soft, non-tender; bowel sounds normal. No peritoneal signs Musculoskeletal: No pedal edema, no cyanosis. Skin: No rash or abscess Hem/Lymphatic: No palpable cervical or supraclavicular nodes. No lymphangitis Psych: Mood ok. Affect normal Neurological: Awake, alert, oriented. No gross abnormality - Constitutional Vitals: Vital Signs Temp Pulse Resp BP Pulse Ox 98.5 F 82 16 179/78 92 09/24/20 04:29 09/24/20 08:50 09/24/20 08:50 09/24/20 05:16 09/24/20 08:51 Temperature -Last 24 Hours Temperature 98.5 F Temperature 99.4 F Results - Labs CBC & Chem 7: 09/24/20 06:18 09/24/20 06:18 Labs: Abnormal lab results 09/24/20 09/24/20 09/24/20 Range/Units 01:24 01:24 01:47 Hgb 14.5 H (10.1-14.3) gm/dl Hct 43.7 H (30.3-42.9) % RDW 15.8 H (13.2-15.2) % Lymph % (Auto) (13.4-35.0) % [place] % (Auto) 11.4 H (0.0-7.3) % Lymph # (Auto) (1.2-5.4) K/mm3 [place] # (Auto) 1.1 H (0.0-0.8) K/mm3 Seg Neutrophils % (40.0-70.0) % Seg Neutrophils # (1.8-7.7) K/mm3 D-Dimer 804.52 H (0-234) ng/mlDDU Potassium (3.6-5.0) mmol/L Glucose 210 H (65-100) mg/dL Calcium (8.4-10.2) mg/dL Lactate Dehydrogenase (91-180) units/L Troponin T 0.350 H* (0.00-0.029) ng/mL C-Reactive Protein (0.00-1.30) mg/dL NT-Pro-B Natriuret Pep (0-900) pg/mL Total Protein 5.9 L (6.3-8.2) g/dL Albumin 2.9 L (3.9-5) g/dL Cholesterol 224 H (50-199) mg/dL LDL Cholesterol Direct 155 H (50-130) mg/dL 09/24/20 09/24/20 09/24/20 Range/Units 01:47 06:18 06:18 Hgb 14.5 H (10.1-14.3) gm/dl Hct 44.5 H (30.3-42.9) % RDW (13.2-15.2) % Lymph % (Auto) 7.9 L (13.4-35.0) % [place] % (Auto) (0.0-7.3) % Lymph # (Auto) 0.8 L (1.2-5.4) K/mm3 [place] # (Auto) (0.0-0.8) K/mm3 Seg Neutrophils % 88.2 H (40.0-70.0) % Seg Neutrophils # 8.8 H (1.8-7.7) K/mm3 D-Dimer (0-234) ng/mlDDU Potassium 3.1 L D (3.6-5.0) mmol/L Glucose 221 H 274 H (65-100) mg/dL Calcium 8.0 L (8.4-10.2) mg/dL Lactate Dehydrogenase 344 H (91-180) units/L Troponin T (0.00-0.029) ng/mL C-Reactive Protein 3.30 H (0.00-1.30) mg/dL NT-Pro-B Natriuret Pep 8271 H (0-900) pg/mL Total Protein (6.3-8.2) g/dL Albumin (3.9-5) g/dL Cholesterol (50-199) mg/dL LDL Cholesterol Direct (50-130) mg/dL - Imaging and Cardiology Chest x-ray: report reviewed, image reviewed (LLL opacity) Assessment and Plan Cultures: COVID-19 PCR: Pending A/P: 65-year-old female with arthritis, CAD, hypertension, diabetes, renal cancer status post nephrectomy: #Left lower lobe pneumonia with pleural effusion: Procalcitonin is low, no leukocytosis. Follow-up COVID-19 PCR. Inflammatory markers are also not sign ificantly elevated. #Acute hypoxic respiratory failure: On nasal cannula. #Chest discomfort: Troponin elevated. DVT scan negative. CTA pending. Cardiology also on board. Recs: Continue levofloxacin for now, anticipate stopping soon, procal is low Follow-up COVID-19 PCR Bernice Cardoza MD, FACP [facility] ([facility] O: [phone] F: [phone]
[2020-09-24] MEDS: FAMOTIDINE 20 MG TAB PO SCH ×2 (14:00→21:12)
[2020-09-24] MEDS: dexAMETHasone 4 MG/ML VIAL IV SCH (14:00)
[2020-09-24] MEDS: INSULIN LISPRO 100 UNIT/ML SUB-Q SCH ×4 (14:47→21:10)
[2020-09-24] MEDS ORDERED: POTASSIUM CHLORIDE ER 20 MEQ TAB PO SCH (15:00)
[2020-09-24] MEDS: METOPROLOL TARTRATE 25 MG TAB PO SCH (21:09)
--- NOTE | 2020-09-24 22:51 | Consultation ---
DATE OF CONSULTATION: 09/24/2020 REFERRING PHYSICIAN: Hospitalist Service, Dr. Terri Nielsen. REASON FOR CONSULTATION: Opinion regarding abnormal troponin. HISTORY OF PRESENT ILLNESS: The patient is a pleasant 65-year-old -[place] female with history of arthritis, renal cancer, history of a left nephrectomy, diabetes, migraine, questionable heart disease, presents here for cardiac evaluation. She is from [place], [place] visiting her son here for a birthday alliance party. She states she has been having shortness of breath for several days. No syncope or presyncope. She is seen on telemetry, feeling much better today. PAST MEDICAL HISTORY: As aforementioned. ALLERGIES: PENICILLIN. No known food or environmental allergies. INPATIENT AND OUTPATIENT MEDICATIONS: Reviewed. REVIEW OF SYSTEMS: As per HPI. Denies any chest pain. Does endorse shortness of breath, no orthopnea, no syncope or presyncope. No hematochezia, melena, hemoptysis, hematemesis or abdominal pain. SOCIAL HISTORY: She does smoke. Nondrinker. FAMILY HISTORY: No family history of premature heart disease. PHYSICAL EXAMINATION: VITAL SIGNS: Blood pressure is 170/80. She is afebrile. GENERAL: Tele reveals sinus rhythm. No dysrhythmias. She was just placed on telemetry. She has not had her COVID vaccination. HEENT: Sclerae are anicteric. NECK: Supple, no mass, no JVD. CHEST: Decreased breath sounds at bilateral bases. Overall, moderate air movement. CARDIOVASCULAR: Regular rate and rhythm. S1, S2. ABDOMEN: Soft, nontender, nondistended. Normoactive bowel sounds in all 4 quadrants. No mass or bruits. EXTREMITIES: No cyanosis, clubbing, edema. Good peripheral pulses. SKIN: Warm, dry, intact. No rashes. LABORATORY DATA: WBC 10.0, hemoglobin 14.5, hematocrit 44.5, platelets 436. D-dimer 804, potassium 3.1. Troponin 0.35, AST 15, ALT 16. C-reactive protein 3.3, total CK is only 102. EKG reveals a sinus rhythm, left atrial enlargement, LVH, nonspecific T wave changes. ASSESSMENT AND PLAN: In summary, the patient is a pleasant 65-year-old -[place] female. 1. Subacute shortness of breath, questionable heart failure of unclear etiology in the milieu of abnormal troponin and D-dimer, recent trip from [place], [place]. Need to rule out pulmonary embolus. The patient is already on IV heparin. Check CT chest with contrast. The patient has 1 kidney. If this is unremarkable, consider ischemic workup with left heart catheterization or stress test in a.m. Results of my findings and plan of care discussed at length with the patient. All questions were addressed. TID: [id number] RECEIPT: [id number] LETICIA/MONET
[2020-09-25] MEDS: IPRATROPIUM/ALBUTEROL SULFATE 3 ML AMPUL.NEB IH SCH ×3 (01:56→19:44)
[2020-09-25] MEDS: HEPARIN/ 0.45% NACL DRIP 25,000 UNIT/500 ML BAG IV SCH (04:24)
[2020-09-25 04:54] LABS: Calcium 8.1 mg/dL (8.4-10.2)
[2020-09-25] MEDS: hydrALAZINE 20 MG/1 ML INJ IV PRN (04:56)
[2020-09-25 04:58] LABS: Basophils # (Auto) 0.2 K/mm3 (0.0-0.1); Basophils % (Auto) 1.4 % (0.0-1.8); Eosinophils % (Auto) 0.1 % (0.0-4.3); Hematocrit 41.4 % (30.3-42.9); Hemoglobin 13.8 gm/dl (10.1-14.3); Lymphocytes # (Auto) 2.3 K/mm3 (1.2-5.4); Lymphocytes % (Auto) 20.6 % (13.4-35.0); Mean Corpuscular HGB Conc 33 % (30-34); Mean Corpuscular Volume 90 fl (79-97); Monocytes # (Auto) 1.1 K/mm3 (0.0-0.8); Monocytes % (Auto) 10.1 % (0.0-7.3); Platelet Count 426 K/mm3 (140-440); Red Blood Count 4.58 M/mm3 (3.65-5.03); Red Cell Distribution Width 14.9 % (13.2-15.2)
[2020-09-25] MEDS: MORPHINE 2 MG/1 ML INJ IV PRN ×2 (04:58→17:55)
[2020-09-25] MEDS: INSULIN LISPRO 100 UNIT/ML SUB-Q SCH ×4 (07:59→22:15)
[2020-09-25] MEDS ORDERED: SODIUM CHLORIDE 0.9% 1000 ML 1,000 ML IV SCH (08:45)
[2020-09-25] MEDS ORDERED: SODIUM CHLORIDE 0.9% 1000 ML IV SOLN IV SCH (09:00)
--- NOTE | 2020-09-25 09:07 | Progress Note ---
Assessment and Plan Assessment and plan: -- COVID-19 test negative 09/24/2020 --Non-ST elevation [place] ; Current Visit: Yes Status: Acute Aspirin 325 mg p.o. daily. Beta-blockers ,Lipitor 40 mg p.o. daily. Nitroglycerin as needed. Heparin drip per protocol and morphine. cardiology evaluation recommendations noted and appreciated considering left heart catheterization --Elevated D-dimers; Current Visit: Yes Status: Acute we will check CTA chest to rule out PE, will also order lower extremity venous Doppler to rule out DVT -- Acute respiratory failure with hypoxia; Current Visit: Yes Status: Acute Oxygen via nasal cannula 3 L/min. nebulizer Levaquin 750 mg IV daily. Steroid. COVID-19 test negative --Left lower lobe pneumonia Current Visit: Yes Status: Acute Procalcitonin is low , will continue empiric antibiotics for now per ID oxygen as needed.Follow cultures supportive care --Hypertension Current Visit: Yes Status: Acute Hydralazine 10 mg IV every 6 hours as needed. We will monitor the blood pressure closely. --Dyslipidemia; Current Visit: Yes Status: Acute Low-cholesterol diet, statin. --Obesity; BMI 33.5; Current Visit: Yes Status: Acute Patient needs diet modification , exercise as tolerated And weight reduction when medically stable --Type II diabetes Current Visit: Yes Status: Acute Accu-Chek sliding scale coverage ADA diet and insulin as needed. Diabetic education nutrition education as indicated --DVT prophylaxis Current Visit: Yes Status: Acute Heparin drip for DVT prophylaxis. Pepcid 20 mg p.o. twice daily for GI prophylaxis. Patient is a full code I discussed with cardiovascular surgeon Dr. Sunny Hua Is to monitor the patient and adjust the management as needed Plan of care reviewed with patient and her nurse 09/25/2020; patient is scheduled for CTA chest to rule out PE Cardiology considering left heart catheterization pending CTA chest COVID-19 negative History Interval history: Patient feels slightly better denies any chest pain or shortness of breath Denies nausea vomiting, patient is afebrile, COVID-19 test is negative Scheduled for CTA chest to rule out PE in the setting of shortness of breath and elevated D-dimers Vital signs reviewed Hospitalist Physical - Constitutional Vitals: Temp Pulse Resp BP Pulse Ox 98.0 F 83 18 202/102 93 09/25/20 04:51 09/25/20 04:51 09/25/20 04:58 09/25/20 04:51 09/25/20 04:51 General appearance: Present: no acute distress, well-nourished, obese - EENT Eyes: Present: PERRL, EOM intact - Neck Neck: Present: supple, normal ROM - Respiratory Respiratory effort: normal Respiratory: bilateral: diminished, rhonchi, negative: rales, wheezing - Cardiovascular Rhythm: regular Heart Sounds: Present: S1 & S2 - Extremities Extremities: no ischemia, No edema - Abdominal General gastrointestinal: soft, non-tender, non-distended, normal bowel sounds - Integumentary Integumentary: Present: clear, warm - Psychiatric Psychiatric: appropriate mood/affect, cooperative - Neurologic Neurologic: moves all extremities HEART Score - HEART Score Troponin: Troponin T 0.290 ng/mL (0.00-0.029) H* 09/24/20 11:02 Results - Labs CBC & Chem 7: 09/25/20 04:14 09/25/20 04:14 Labs: Laboratory Last Values WBC 11.1 K/mm3 (4.5-11.0) H 09/25/20 04:14 RBC 4.58 M/mm3 (3.65-5.03) 09/25/20 04:14 Hgb 13.8 gm/dl (10.1-14.3) 09/25/20 04:14 Hct 41.4 % (30.3-42.9) 09/25/20 04:14 MCV 90 fl (79-97) 09/25/20 04:14 MCH 30 pg (28-32) 09/25/20 04:14 MCHC 33 % (30-34) 09/25/20 04:14 RDW 14.9 % (13.2-15.2) 09/25/20 04:14 Plt Count 426 K/mm3 (140-440) 09/25/20 04:14 Lymph % (Auto) 20.6 % (13.4-35.0) 09/25/20 04:14 [place] % (Auto) 10.1 % (0.0-7.3) H 09/25/20 04:14 Eos % (Auto) 0.1 % (0.0-4.3) 09/25/20 04:14 Baso % (Auto) 1.4 % (0.0-1.8) 09/25/20 04:14 Lymph # (Auto) 2.3 K/mm3 (1.2-5.4) 09/25/20 04:14 [place] # (Auto) 1.1 K/mm3 (0.0-0.8) H 09/25/20 04:14 Eos # (Auto) 0.0 K/mm3 (0.0-0.4) 09/25/20 04:14 Baso # (Auto) 0.2 K/mm3 (0.0-0.1) H 09/25/20 04:14 Seg Neutrophils % 67.8 % (40.0-70.0) 09/25/20 04:14 Seg Neutrophils # 7.6 K/mm3 (1.8-7.7) 09/25/20 04:14 PT 12.6 Sec. (12.2-14.9) 09/24/20 03:37 INR 0.95 (0.87-1.13) 09/24/20 03:37 APTT 28.3 Sec. (24.2-36.6) 09/24/20 03:37 D-Dimer 804.52 ng/mlDDU (0-234) H 09/24/20 01:47 Heparin Anti-Xa Level 0.69 U.I./ml (0.3-0.7) 09/25/20 04:14 Sodium 141 mmol/L (137-145) 09/25/20 04:14 Potassium 3.7 mmol/L (3.6-5.0) 09/25/20 04:14 Chloride 101.2 mmol/L (98-107) 09/25/20 04:14 Carbon Dioxide 29 mmol/L (22-30) 09/25/20 04:14 Anion Gap 15 mmol/L 09/25/20 04:14 BUN 17 mg/dL (7-17) 09/25/20 04:14 Creatinine 1.2 mg/dL (0.6-1.2) 09/25/20 04:14 Estimated GFR 54 ml/min 09/25/20 04:14 BUN/Creatinine Ratio 14 % 09/25/20 04:14 Glucose 171 mg/dL (65-100) H 09/25/20 04:14 POC Glucose 148 mg/dL (70-105) H 09/25/20 07:49 Lactic Acid 1.40 mmol/L (0.7-2.0) 09/24/20 03:37 Calcium 8.1 mg/dL (8.4-10.2) L 09/25/20 04:14 Magnesium 1.80 mg/dL (1.7-2.3) 09/24/20 01:47 Ferritin 31.5 ng/mL (10.0-200.0) 09/24/20 01:47 Total Bilirubin 0.30 mg/dL (0.1-1.2) 09/24/20 01:24 AST 15 units/L (5-40) 09/24/20 01:24 ALT 16 units/L (7-56) 09/24/20 01:24 Alkaline Phosphatase 123 units/L (35-129) 09/24/20 01:24 Lactate Dehydrogenase 344 units/L (91-180) H 09/24/20 01:47 Total Creatine Kinase 102 units/L (30-135) 09/24/20 01:47 Troponin T 0.290 ng/mL (0.00-0.029) H* 09/24/20 11:02 C-Reactive Protein 3.30 mg/dL (0.00-1.30) H 09/24/20 01:47 NT-Pro-B Natriuret Pep 8271 pg/mL (0-900) H 09/24/20 01:47 Total Protein 5.9 g/dL (6.3-8.2) L 09/24/20 01:24 Albumin 2.9 g/dL (3.9-5) L 09/24/20 01:24 Albumin/Globulin Ratio 1.0 % 09/24/20 01:24 Triglycerides 123 mg/dL (2-149) 09/24/20 01:24 Cholesterol 224 mg/dL (50-199) H 09/24/20 01:24 LDL Cholesterol Direct 155 mg/dL (50-130) H 09/24/20 01:24 HDL Cholesterol 57 mg/dL (40-59) 09/24/20 01:24 Cholesterol/HDL Ratio 3.92 % 09/24/20 01:24 Procalcitonin < 0.05 ng/mL (<0.15) 09/24/20 01:47 Coronavirus (PCR) Negative (Negative) 09/24/20 Unknown Microbiology: Microbiology 09/24/20 04:06 Peripheral/Venous Blood Culture - Preliminary Culture in Progress 09/24/20 03:37 Peripheral/Venous Blood Culture - Preliminary Culture in Progress Hodges/IV: Voiding Method External Female Catheter Active Medications - Current Medications Current Medications: Generic Name Dose Route Start Last Admin Trade Name Freq PRN Reason Stop Dose Admin Acetaminophen 650 mg 09/24/20 05:09 Acetaminophen 325 Mg Tab PO Q4H PRN Pain MILD(1-3)/Fever >100.5/JJ Albuterol 2.5 mg 09/24/20 05:09 Albuterol 2.5 Mg/3 Ml Nebu IH Q3HRT PRN Shortness Of Breath Albuterol/Ipratropium 1 ampul 09/24/20 08:00 09/25/20 01:56 Ipratropium/Albuterol Sulfate 3 Ml Ampul.Neb IH Not Given Q6HRT ANG Aspirin 325 mg 09/25/20 10:00 Aspirin Ec 325 Mg Tab PO QDAY ANG Atorvastatin Calcium 40 mg 09/24/20 22:00 09/24/20 21:09 Atorvastatin 40 Mg Tab PO 40 mg QHS ANG Administration Dexamethasone 6 mg 09/24/20 10:00 09/24/20 14:00 Dexamethasone 4 Mg/Ml Vial IV 10/03/20 10:01 6 mg DAILY ANG Administration Dextrose 0 ml 09/24/20 05:09 Dextrose 50% In Water (25gm) 50 Ml Syringe IV Q30MIN PRN Hypoglycemia Protocol Famotidine 20 mg 09/24/20 10:00 09/24/20 21:12 Famotidine 20 Mg Tab PO 20 mg BID ANG Administration Heparin Sodium (Porcine) 3,000 unit 09/24/20 03:27 09/24/20 13:06 Heparin 10,000 Units/10 Ml Vial 40 unit/kg (3000 unit) 3,000 unit IV Administration Q6H PRN Anti-Xa Assay < 0.1 units/ml Hydralazine HCl 10 mg 09/24/20 11:00 09/25/20 04:56 Hydralazine 20 Mg/1 Ml Inj IV 10 mg Q4H PRN Administration Hypertension Heparin Sodium/Sodium Chloride 25,000 unit in 500 mls @ 20 mls/hr 09/24/20 04:00 09/25/20 06:23 Heparin/ 0.45% Nacl-25,000 Unit/500 Ml IV 1,250 units/hr TITRATE ANG 25 mls/hr Titration Protocol 1,000 UNITS/HR Levofloxacin/Dextrose 750 mg in 150 mls @ 100 mls/hr 09/24/20 06:00 09/25/20 05:08 Levaquin 750mg/150ml IV 100 mls/hr Q24H ANG Administration Protocol Sodium Chloride 1,000 mls @ 50 mls/hr 09/25/20 08:45 Nacl 0.9% 1000 Ml IV 09/26/20 08:44 DIRECT ANG Insulin Human Lispro 0 unit 09/24/20 07:30 09/25/20 07:59 Insulin Lispro 100 Unit/Ml SUB-Q Not Given ACHS [facility] Protocol Metoprolol Tartrate 12.5 mg 09/24/20 22:00 09/24/20 21:09 Metoprolol Tartrate 25 Mg Tab PO 12.5 mg BID ANG Administration Morphine Sulfate 2 mg 09/24/20 05:09 09/25/20 04:58 Morphine 2 Mg/1 Ml Inj IV 2 mg Q5MIN PRN Administration Chest Pain Nitroglycerin 0.4 mg 09/24/20 05:09 Nitroglycerin 0.4 Mg Tab Subl SL Q5M PRN Chest Pain Ondansetron HCl 4 mg 09/24/20 05:09 Ondansetron 4 Mg/2 Ml Inj IV Q8H PRN Nausea And Vomiting Sodium Chloride 10 ml 09/24/20 10:00 09/24/20 21:10 Sodium Chloride 0.9% 10 Ml Flush Syringe IV 10 ml BID ANG Administration Sodium Chloride 10 ml 09/24/20 05:09 Sodium Chloride 0.9% 10 Ml Flush Syringe IV PRN PRN LINE FLUSH Tramadol HCl 50 mg 09/24/20 05:09 Tramadol 50 Mg Tab PO Q6H PRN Pain, Moderate (4-6) Nutrition/Malnutrition Assess - Dietary Evaluation Nutrition/Malnutrition Findings: Nutrition Notes Start: 09/24/20 11:50 Freq: Status: Active Protocol: Document 09/24/20 11:50 YULISSA (Rec: 09/24/20 11:52 YULISSA [id number]) Nutrition Notes Need for Assessment generated from: MD Order,Education Initial or Follow up Brief Note Current Diagnosis Diabetes,Hypertension, Respiratory Failure Other Pertinent Diagnosis COVID PUI, pneu Current Diet Cardiac, Consistent CHO Labs/Tests Cholesterol 224 LDL 155 Subjective/Other Information MD order for diet education. Pt did not answer phone x2. Nutrition Intervention Follow-Up By: 09/25/20 Additional Comments FU for diet education
--- NOTE | 2020-09-25 10:23 | Progress Note ---
Assessment and Plan Telemetry reviewed: Sinus rhythm 84. No events. #NSTEMI * No plan for left heart cath in setting of acute PTE * Continue current cardiac protective regimen aspirin 325 mg p.o. daily, Lipitor 40 mg p.o. daily. NTG as needed. Currently on heparin gtt. Continue to trend CE's. * Echocardiogram is pending #Hypertension * Increase metoprolol to 25 mg twice daily. No GAYATHRI inhibitor at this time due to chronic kidney disease and multiple contrast studies pending #Acute respiratory failure with hypoxia in setting of left lower lobe pneumonia Patient is currently weaned off oxygen. Respiratory distress is resolved at this time CT chest is positive for PTE. #Chronic kidney disease s/p left nephrectomy in setting of diabetes Creatinine is 1.2. Use caution with nephrotoxic medications. Initiate gentle IVF with normal saline 50 mL/h x 24 hours in anticipation of LHC tomorrow #DVT prophylaxis Currently on heparin gtt. No plan for further ischemic eval in setting of acute PTE. Echo pending. Will follow. This patient was seen in conjunction with Dr Iain Hua who agrees with this assessment and plan of care. - Patient Problems (1) Acute respiratory failure with hypoxia Current Visit: Yes Status: Acute Plan to address problem: (2) Left lower lobe pneumonia Current Visit: Yes Status: Acute Plan to address problem: (3) Suspected COVID-19 virus infection Current Visit: Yes Status: Acute Plan to address problem: (4) NSTEMI Current Visit: Yes Status: Acute Plan to address problem: (5) Hypertension Current Visit: Yes Status: Acute Plan to address problem: (6) Diabetes Current Visit: Yes Status: Acute Plan to address problem: (7) DVT prophylaxis Current Visit: Yes Status: Acute Plan to address problem: Subjective Date of service: 09/25/20 Principal diagnosis: Short of breath Interval history: Pt is resting comfortably in bed. No CP or LYNDSEY overnight. Telemetry reviewed: SR 84. No events. Objective Last Vital Signs Temp 98.0 F 09/25/20 04:51 Pulse 83 09/25/20 04:51 Resp 18 09/25/20 04:58 BP 202/102 09/25/20 04:51 Pulse Ox 93 09/25/20 04:51 - Physical Examination General: Appears Well HEENT: Positive: PERRL, Normocephaly, Mucus Membranes Moist Neck: Positive: neck supple, trachea midline Cardiac: Positive: Reg Rate and Rhythm Lungs: Positive: Normal Exam, Normal Breath Sounds Neuro: Positive: Grossly Intact Abdomen: Positive: Unremarkable, Soft Skin: Negative: Rash, Wound Musculoskeletal: No Pain Extremities: Present: upper extr. pulses, lower extr. pulses. Absent: edema - Labs and Meds CBC 09/25/20 Range/Units 04:14 WBC 11.1 H (4.5-11.0) K/mm3 RBC 4.58 (3.65-5.03) M/mm3 Hgb 13.8 (10.1-14.3) gm/dl Hct 41.4 (30.3-42.9) % Plt Count 426 (140-440) K/mm3 Lymph # (Auto) 2.3 (1.2-5.4) K/mm3 [place] # (Auto) 1.1 H (0.0-0.8) K/mm3 Eos # (Auto) 0.0 (0.0-0.4) K/mm3 Baso # (Auto) 0.2 H (0.0-0.1) K/mm3 Comprehensive Metabolic Panel 09/25/20 Range/Units 04:14 Sodium 141 (137-145) mmol/L Potassium 3.7 (3.6-5.0) mmol/L Chloride 101.2 (98-107) mmol/L Carbon Dioxide 29 (22-30) mmol/L BUN 17 (7-17) mg/dL Creatinine 1.2 (0.6-1.2) mg/dL Glucose 171 H (65-100) mg/dL Calcium 8.1 L (8.4-10.2) mg/dL - Imaging and Cardiology EKG: pending Echo: pending - Telemetry EKG Rhythm: Sinus Rhythm
--- NOTE | 2020-09-25 11:26 | Cat Scan Report ---
CTA chest with contrast INDICATION : Elevated D-dimers/shortness of breath/r/o PE. TECHNIQUE: Axial imaging performed through the chest, with contrast bolus timing set to maximize opa cification of the pulmonary arteries. 3-plane MIP reformatted images were obtained. All CT scans at this location are performed using CT dose reduction for ALARA by means of automated exposure control. 100 mL of intravenous contrast administered. COMPARISON: None FINDINGS: Bolus/PTE: Contrast bolus timing is adequate. There is a subsegmental thrombus in the left upper lo be and segmental/subsegmental thrombi throughout the right lung. There may also be a tiny subsegmenta l thrombus in the left lower lobe. Mediastinum: Heart size is normal with no evidence of RV strain. Moderate atherosclerotic disease is present in the coronary arteries. There is a small pericardial effusion and also a small left-sided pleural effusion. No pathologic mediastinal adenopathy. Lungs: Mild emphysematous changes are present in the lungs with a small left-sided pleural effusion and underlying compressive atelectasis in the left lung base. Upper abdomen: Limited imaging of the upper abdomen shows nothing acute. A 1 cm rounded hyperdense focus is seen in the periphery of the right upper renal pole on image #351. Bones: Degenerative changes in the spine with nothing acute. IMPRESSION: 1. Positive for PTE as above. 2. Small pericardial effusion and left-sided pleural effusion with mild left basilar atelectasis. 3. Incidental 1 cm hyperdense cyst versus tiny masses in the upper pole right kidney. Consider pre an d postcontrast CT abdomen nonemergently for more thorough evaluation. COMMUNICATION: Time of Communication (SAND SHOVELER/CDT): 10:20 am Licensed Practitioner Receiving Report: Nurse Joseph Signer Name: Basilio Blum MD Signed: 09/25/2020 11:21 AM Workstation Name: [id number]
[2020-09-25] MEDS: METOPROLOL TARTRATE 25 MG TAB PO SCH ×2 (12:02→22:15)
[2020-09-25] MEDS: dexAMETHasone 4 MG/ML VIAL IV SCH (12:02)
--- NOTE | 2020-09-25 13:16 | Progress Note ---
Assessment and Plan Cultures: COVID-19 PCR: negative Blood culture: no growth so far. A/P: 65-year-old female with arthritis, CAD, hypertension, diabetes, renal cancer status post nephrectomy: #Left lower lobe pleural effusion: Procalcitonin is low, no leukocytosis. COVID-19 PCR negative. Inflammatory markers are also not significantly elevated. #Acute hypoxic respiratory failure: On nasal cannula. #Chest discomfort/NSTEMI: Troponin elevated. DVT scan negative. CTA pending. Cardiology also on board. Recs: COVID-19 PCR is negative Procal is also low, abx discontinued ID will sign off. Please call with questions. Bernice Cardoza MD, FACP [facility] ([facility] O: [phone] F: [phone] Subjective Date of service: 09/25/20 Principal diagnosis: Short of breath Interval history: No fever. COVID-19 PCR is negative. Mild shortness of breath + Objective - Exam Narrative Exam: Physical Exam: Constitutional: Alert, cooperative. No acute distress Head, Ears, Nose: Normocephalic, atraumatic. External ears, nose normal Eyes: Conjunctivae/corneas clear. No icterus. No ptosis. Neck: Supple, no meningeal signs Cardiovascular: S1, S2 normal. Respiratory: few rhonchi GI: Soft, non-tender; bowel sounds normal. No peritoneal signs Musculoskeletal: No pedal edema, no cyanosis. Skin: No rash or abscess Hem/Lymphatic: No palpable cervical or supraclavicular nodes. No lymphangitis Psych: Mood ok. Affect normal Neurological: Awake, alert, oriented. No gross abnormality - Constitutional Vitals: Vital Signs Temp Pulse Resp BP Pulse Ox 98.0 F 83 18 202/102 93 09/25/20 04:51 09/25/20 04:51 09/25/20 04:58 09/25/20 04:51 09/25/20 04:51 Temperature -Last 24 Hours Temperature 98.0 F Temperature 98.7 F Temperature 98.8 F - Labs CBC & Chem 7: 09/25/20 04:14 09/25/20 04:14 Labs: Abnormal lab results 09/24/20 09/24/20 09/25/20 Range/Units 16:28 20:46 04:14 WBC 11.1 H (4.5-11.0) K/mm3 [place] % (Auto) 10.1 H (0.0-7.3) % [place] # (Auto) 1.1 H (0.0-0.8) K/mm3 Baso # (Auto) 0.2 H (0.0-0.1) K/mm3 Glucose (65-100) mg/dL POC Glucose 164 H 201 H (70-105) mg/dL Calcium (8.4-10.2) mg/dL 09/25/20 09/25/20 Range/Units 04:14 07:49 WBC (4.5-11.0) K/mm3 [place] % (Auto) (0.0-7.3) % [place] # (Auto) (0.0-0.8) K/mm3 Baso # (Auto) (0.0-0.1) K/mm3 Glucose 171 H (65-100) mg/dL POC Glucose 148 H (70-105) mg/dL Calcium 8.1 L (8.4-10.2) mg/dL
[2020-09-25] MEDS: FAMOTIDINE 20 MG TAB PO SCH ×2 (15:58→22:14)
[2020-09-25] MEDS: ASPIRIN EC 325 MG TAB PO SCH (15:58)
--- NOTE | 2020-09-25 19:03 | Event Note ---
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
[2020-09-26 04:35] LABS: Hematocrit 42.2 % (30.3-42.9); Hemoglobin 13.9 gm/dl (10.1-14.3); Mean Corpuscular HGB Conc 33 % (30-34); Mean Corpuscular Volume 91 fl (79-97); Red Blood Count 4.61 M/mm3 (3.65-5.03); Red Cell Distribution Width 15.1 % (13.2-15.2)
[2020-09-26 04:36] LABS: Platelet Count 435 K/mm3 (140-440)
[2020-09-26] MEDS: traMADol 50 MG TAB PO PRN (04:40)
[2020-09-26] MEDS: hydrALAZINE 20 MG/1 ML INJ IV PRN (04:40)
[2020-09-26] MEDS: HEPARIN/ 0.45% NACL DRIP 25,000 UNIT/500 ML BAG IV SCH (05:43)
[2020-09-26] MEDS: INSULIN LISPRO 100 UNIT/ML SUB-Q SCH ×4 (07:30→21:33)
[2020-09-26] MEDS: IPRATROPIUM/ALBUTEROL SULFATE 3 ML AMPUL.NEB IH SCH ×3 (08:45→21:03)
[2020-09-26] MEDS: ASPIRIN EC 325 MG TAB PO SCH (09:17)
[2020-09-26] MEDS: FAMOTIDINE 20 MG TAB PO SCH ×2 (09:17→21:35)
[2020-09-26] MEDS: LISINOPRIL 5 MG TAB PO SCH (09:17)
[2020-09-26] MEDS: METOPROLOL TARTRATE 25 MG TAB PO SCH ×2 (09:18→21:35)
--- NOTE | 2020-09-26 10:09 | Electrocardiograph Report ---
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
--- NOTE | 2020-09-26 10:11 | Electrocardiograph Report ---
[facility] Test Date: 2020-09-24 Test Time: 11:01:18 Pat Name: YAA ABAD Department: Room: A370 Gender: F Plate Straightener: ARIADNE : 1955 Requested By: MINNIE JOHN Order Number: [id number] Reading MD: Eligio Hua Measurements Intervals [place] Rate: 87 P: 69 ME: 152 QRS: 43 QRSD: 106 T: 108 QT: QTc: 0 Interpretive Statements Sinus rhythm Probable left atrial enlargement Compared to ECG 09/24/2020 01:52:16 Left ventricular hypertrophy no longer present Electronically Signed On 09-26-2020 10:11:24 EDT by Eligio Hua
--- NOTE | 2020-09-26 10:12 | Electrocardiograph Report ---
[facility] Test Date: 2020-09-24 Test Time: 13:44:32 Pat Name: YAA ABAD Department: Room: A370 Gender: F Entry Engineer: ARIADNE : 1955 Requested By: MINNIE JOHN Order Number: [id number] Reading MD: Eligio Hua Measurements Intervals [place] Rate: 87 P: 76 NM: 156 QRS: 37 QRSD: 102 T: 116 QT: QTc: 0 Interpretive Statements Sinus rhythm Probable left atrial enlargement Nonspecific T abnrm, anterolateral leads Compared to ECG 09/24/2020 11:01:18 No significant changes Electronically Signed On 09-26-2020 10:12:07 EDT by Eligio Hua
--- NOTE | 2020-09-26 10:15 | Electrocardiograph Report ---
[facility] Test Date: 2020-09-25 Test Time: 11:59:17 Pat Name: YAA ABAD Department: Room: A370 1 Gender: F Band Leader: GABRIELA : 1955 Requested By: RIC RODRIGUEZ Order Number: [id number] Reading MD: Eligio Hua Measurements Intervals [place] Rate: 88 P: 65 MD: 158 QRS: 23 QRSD: 89 T: 73 QT: 456 QTc: 551 Interpretive Statements Sinus rhythm Ventricular premature complex Probable left atrial enlargement Probable left ventricular hypertrophy Nonspecific T abnormalities, lateral leads Prolonged QT interval Compared to ECG 09/24/2020 13:44:32 Ventricular premature complex(es) now present T-wave abnormality now present Prolonged QT interval now present Electronically Signed On 09-26-2020 10:14:47 EDT by Eligio Hua
--- NOTE | 2020-09-26 12:01 | Progress Note ---
Assessment and Plan Telemetry reviewed: Sinus rhythm 84. No events. #Cardiomyopathy * Echocardiogram reviewed (09/24/2020): LVEF is 35 to 40%. LV SF is mild to moderately decreased. Mild to moderate LVH. Severe hypokinesis of the anterior lateral and anterior wall. No LV thrombus noted on the study. RVSF is normal. No valvular abnormalities. RVSP is 31 mmHg. * Plan for ischemic eval once medically stabilized. This may be completed in outpatient setting. * No GAYATHRI inhibitor at this time in setting of chronic renal disease * Plan for outpatient cardiac rehab for new onset cardiomyopathy once medically stabilized #Acute respiratory failure with hypoxia in setting of left lower lobe pneumonia and pulmonary thromboembolism * CTA chest is positive for PTE. Patient is currently on heparin gtt. this is most likely the source of her elevated troponins. Patient is chest pain-free with mild shortness of breath. Primary team plans to transition to [facility] tomorrow. #Chronic kidney disease s/p left nephrectomy in setting of diabetes * Creatinine is 1.1. Use caution with nephrotoxic medications. #DVT prophylaxis * Currently on heparin gtt. No plan for further ischemic eval in setting of acute PTE until medically stabilized. Will follow. This patient was seen in conjunction with Dr Iain Hua who agrees with this assessment and plan of care. - Patient Problems (1) Acute respiratory failure with hypoxia Current Visit: Yes Status: Acute Plan to address problem: (2) Left lower lobe pneumonia Current Visit: Yes Status: Acute Plan to address problem: (3) Suspected COVID-19 virus infection Current Visit: Yes Status: Acute Plan to address problem: (4) NSTEMI Current Visit: Yes Status: Acute Plan to address problem: (5) Hypertension Current Visit: Yes Status: Acute Plan to address problem: (6) Diabetes Current Visit: Yes Status: Acute Plan to address problem: (7) DVT prophylaxis Current Visit: Yes Status: Acute Plan to address problem: (8)Pulmonary Embolism Current Visit: Yes Status: Acute Plan to address problem: Subjective Date of service: 09/26/20 Principal diagnosis: Short of breath Interval history: Pt is resting comfortably in bed. No CP or LYNDSEY overnight. Telemetry reviewed: Sinus rhythm 84. No events Objective Last Vital Signs Temp 98.1 F 09/26/20 09:13 Pulse 63 09/26/20 09:17 Resp 16 09/26/20 09:13 BP 186/79 06/02/21 09:17 Pulse Ox 93 09/26/20 09:13 - Physical Examination General: Appears Well HEENT: Positive: PERRL, Normocephaly, Mucus Membranes Moist Neck: Positive: neck supple, trachea midline Cardiac: Positive: Reg Rate and Rhythm, S1/S2 Lungs: Positive: Normal Exam, Normal Breath Sounds Neuro: Positive: Grossly Intact Abdomen: Positive: Unremarkable, Soft Skin: Negative: Rash, Wound Musculoskeletal: No Pain Extremities: Present: upper extr. pulses, lower extr. pulses. Absent: edema - Labs and Meds Cardiac Enzymes 09/25/20 Range/Units 04:14 CK-MB (CK-2) 3.0 (0.0-4.0) ng/mL CBC 09/26/20 Range/Units 04:12 WBC 10.0 (4.5-11.0) K/mm3 RBC 4.61 (3.65-5.03) M/mm3 Hgb 13.9 (10.1-14.3) gm/dl Hct 42.2 (30.3-42.9) % Plt Count 435 (140-440) K/mm3 Comprehensive Metabolic Panel 09/26/20 Range/Units 04:12 Sodium 143 (137-145) mmol/L Potassium 3.2 L (3.6-5.0) mmol/L Chloride 106.2 (98-107) mmol/L Carbon Dioxide 27 (22-30) mmol/L BUN 16 (7-17) mg/dL Creatinine 1.1 (0.6-1.2) mg/dL Glucose 67 (65-100) mg/dL Calcium 8.0 L (8.4-10.2) mg/dL - Imaging and Cardiology EKG: report reviewed, image reviewed Echo: pending, report reviewed (Echocardiogram reviewed (09/24/2020): LVEF is 35 to 40%. LV SF is mild to moderately decreased. Mild to moderate LVH. Severe hypokinesis of the anterior lateral and anterior wall. No LV thrombus noted on the study. RVSF is normal. No valvular abnormalities. RVSP is 31 mmHg.)
[2020-09-26] MEDS ORDERED: SODIUM CHLORIDE 0.9% 500 ML IVPB IV ONE (13:00)
[2020-09-26] MEDS ORDERED: SODIUM CHLORIDE 0.9% 500 ML 500 ML IV ONE (13:00)
[2020-09-26] MEDS: POTASSIUM CHLORIDE 10 MEQ 10 MEQ/100 ML BAG IV SCH ×2 (13:00→16:38)
[2020-09-26] MEDS ORDERED: POTASSIUM CHLORIDE ER 20 MEQ TAB PO NR (14:07)
--- NOTE | 2020-09-26 19:36 | Progress Note ---
Assessment and Plan Assessment and plan: -- COVID-19 test negative 09/24/2020 --Pulmonary embolism; Current Visit: Yes Status: Acute Patient is on heparin drip, DC heparin drip And transition to Eliquis per protocol 10 mg twice a day for 14 days followed by 5 mg twice a day Closely monitor for any evidence of bleeding Patient's lower extremity venous Doppler negative for DVT --Non-ST elevation OR ; Current Visit: Yes Status: Acute Aspirin 325 mg p.o. daily. Beta-blockers ,Lipitor 40 mg p.o. daily. Nitroglycerin as needed. DC heparin drip Continue current management Cardiology not planning any procedures --Elevated D-dimers; Current Visit: Yes Status: Acute CTA chest positive for PE, venous Doppler negative for DVT -- Acute respiratory failure with hypoxia; Current Visit: Yes Status: Acute Oxygen via nasal cannula 3 L/min. nebulizer Levaquin 750 mg IV daily. Steroid. COVID-19 test negative --Left lower lobe pneumonia Current Visit: Yes Status: Acute Procalcitonin is low , will continue empiric antibiotics for now per ID oxygen as needed.Follow cultures supportive care --Hypertension Current Visit: Yes Status: Acute Hydralazine 10 mg IV every 6 hours as needed. We will monitor the blood pressure closely. --Dyslipidemia; Current Visit: Yes Status: Acute Low-cholesterol diet, statin. --Obesity; BMI 33.5; Current Visit: Yes Status: Acute Patient needs diet modification , exercise as tolerated And weight reduction when medically stable --Type II diabetes Current Visit: Yes Status: Acute Accu-Chek sliding scale coverage ADA diet and insulin as needed. Diabetic education nutrition education as indicated --DVT prophylaxis Current Visit: Yes Status: Acute Heparin drip for DVT prophylaxis. Pepcid 20 mg p.o. twice daily for GI prophylaxis. Patient is a full code I discussed with [employer] back feeder Dr. Sunny Hua Is to monitor the patient and adjust the management as needed Plan of care reviewed with patient and her nurse 09/25/2020; patient is scheduled for CTA chest to rule out PE Cardiology considering left heart catheterization pending CTA chest COVID-19 negative 09/26/2020; patient has pulmonary embolism, received heparin drip Today with transition to Eliquis p.o. per protocol Closely monitor History Interval history: I have seen and examined the patient at the bedside Patient's chart and medications reviewed Patient feels slightly better Denies chest pain or shortness of breath CTA chest positive for PE on heparin drip Will transition to Eliquis today Vital signs reviewed Hospitalist Physical - Constitutional Vitals: Temp Pulse Resp BP Pulse Ox 98.9 F 84 20 136/62 93 09/26/20 17:49 09/26/20 17:49 09/26/20 17:49 09/26/20 17:49 09/26/20 17:49 General appearance: Present: no acute distress, well-nourished, obese - EENT Eyes: Present: PERRL, EOM intact - Neck Neck: Present: supple, normal ROM - Respiratory Respiratory effort: normal Respiratory: bilateral: diminished, negative: rales, rhonchi, wheezing - Cardiovascular Rhythm: regular Heart Sounds: Present: S1 & S2 - Extremities Extremities: no ischemia, No edema - Abdominal General gastrointestinal: soft, non-tender, non-distended, normal bowel sounds - Integumentary Integumentary: Present: clear, warm - Psychiatric Psychiatric: appropriate mood/affect, cooperative - Neurologic Neurologic: CNII-XII intact, moves all extremities HEART Score - HEART Score Troponin: Troponin T 0.353 ng/mL (0.00-0.029) H* D 09/26/20 04:12 Results - Labs CBC & Chem 7: 09/26/20 04:12 09/26/20 04:12 Labs: Laboratory Last Values WBC 10.0 K/mm3 (4.5-11.0) 09/26/20 04:12 RBC 4.61 M/mm3 (3.65-5.03) 09/26/20 04:12 Hgb 13.9 gm/dl (10.1-14.3) 09/26/20 04:12 Hct 42.2 % (30.3-42.9) 09/26/20 04:12 MCV 91 fl (79-97) 09/26/20 04:12 MCH 30 pg (28-32) 09/26/20 04:12 MCHC 33 % (30-34) 09/26/20 04:12 RDW 15.1 % (13.2-15.2) 09/26/20 04:12 Plt Count 435 K/mm3 (140-440) 09/26/20 04:12 Lymph % (Auto) 20.6 % (13.4-35.0) 09/25/20 04:14 [place] % (Auto) 10.1 % (0.0-7.3) H 09/25/20 04:14 Eos % (Auto) 0.1 % (0.0-4.3) 09/25/20 04:14 Baso % (Auto) 1.4 % (0.0-1.8) 09/25/20 04:14 Lymph # (Auto) 2.3 K/mm3 (1.2-5.4) 09/25/20 04:14 [place] # (Auto) 1.1 K/mm3 (0.0-0.8) H 09/25/20 04:14 Eos # (Auto) 0.0 K/mm3 (0.0-0.4) 09/25/20 04:14 Baso # (Auto) 0.2 K/mm3 (0.0-0.1) H 09/25/20 04:14 Seg Neutrophils % 67.8 % (40.0-70.0) 09/25/20 04:14 Seg Neutrophils # 7.6 K/mm3 (1.8-7.7) 09/25/20 04:14 PT 12.6 Sec. (12.2-14.9) 09/24/20 03:37 INR 0.95 (0.87-1.13) 09/24/20 03:37 APTT 28.3 Sec. (24.2-36.6) 09/24/20 03:37 D-Dimer 804.52 ng/mlDDU (0-234) H 09/24/20 01:47 Heparin Anti-Xa Level 0.38 U.I./ml (0.3-0.7) 09/26/20 04:12 Sodium 143 mmol/L (137-145) 09/26/20 04:12 Potassium 3.2 mmol/L (3.6-5.0) L 09/26/20 04:12 Chloride 106.2 mmol/L (98-107) 09/26/20 04:12 Carbon Dioxide 27 mmol/L (22-30) 09/26/20 04:12 Anion Gap 13 mmol/L 09/26/20 04:12 BUN 16 mg/dL (7-17) 09/26/20 04:12 Creatinine 1.1 mg/dL (0.6-1.2) 09/26/20 04:12 Estimated GFR 60 ml/min 09/26/20 04:12 BUN/Creatinine Ratio 15 % 09/26/20 04:12 Glucose 67 mg/dL (65-100) 09/26/20 04:12 POC Glucose 142 mg/dL (70-105) H 09/26/20 16:20 Lactic Acid 1.40 mmol/L (0.7-2.0) 09/24/20 03:37 Calcium 8.0 mg/dL (8.4-10.2) L 09/26/20 04:12 Magnesium 1.80 mg/dL (1.7-2.3) 09/24/20 01:47 Ferritin 31.5 ng/mL (10.0-200.0) 09/24/20 01:47 Total Bilirubin 0.30 mg/dL (0.1-1.2) 09/24/20 01:24 AST 15 units/L (5-40) 09/24/20 01:24 ALT 16 units/L (7-56) 09/24/20 01:24 Alkaline Phosphatase 123 units/L (35-129) 09/24/20 01:24 Lactate Dehydrogenase 344 units/L (91-180) H 09/24/20 01:47 Total Creatine Kinase 74 units/L (30-135) 09/25/20 04:14 CK-MB (CK-2) 3.0 ng/mL (0.0-4.0) 09/25/20 04:14 CK-MB (CK-2) Rel Index 4.0 (0-4) 09/25/20 04:14 Troponin T 0.353 ng/mL (0.00-0.029) H* D 09/26/20 04:12 C-Reactive Protein 3.30 mg/dL (0.00-1.30) H 09/24/20 01:47 NT-Pro-B Natriuret Pep 8271 pg/mL (0-900) H 09/24/20 01:47 Total Protein 5.9 g/dL (6.3-8.2) L 09/24/20 01:24 Albumin 2.9 g/dL (3.9-5) L 09/24/20 01:24 Albumin/Globulin Ratio 1.0 % 09/24/20 01:24 Triglycerides 123 mg/dL (2-149) 09/24/20 01:24 Cholesterol 224 mg/dL (50-199) H 09/24/20 01:24 LDL Cholesterol Direct 155 mg/dL (50-130) H 09/24/20 01:24 HDL Cholesterol 57 mg/dL (40-59) 09/24/20 01:24 Cholesterol/HDL Ratio 3.92 % 09/24/20 01:24 Procalcitonin < 0.05 ng/mL (<0.15) 09/24/20 01:47 Coronavirus (PCR) Negative (Negative) 09/24/20 Unknown Microbiology: Microbiology 09/24/20 04:06 Peripheral/Venous Blood Culture - Preliminary NO GROWTH AFTER 48 HOURS 09/24/20 03:37 Peripheral/Venous Blood Culture - Preliminary NO GROWTH AFTER 48 HOURS Hodges/IV: Voiding Method Bedside Commode Active Medications - Current Medications Current Medications: Generic Name Dose Route Start Last Admin Trade Name Freq PRN Reason Stop Dose Admin Acetaminophen 650 mg 09/24/20 05:09 Acetaminophen 325 Mg Tab PO Q4H PRN Pain MILD(1-3)/Fever >100.5/JJ Albuterol 2.5 mg 09/24/20 05:09 Albuterol 2.5 Mg/3 Ml Nebu IH Q3HRT PRN Shortness Of Breath Albuterol/Ipratropium 1 ampul 09/26/20 08:00 09/26/20 14:29 Ipratropium/Albuterol Sulfate 3 Ml Ampul.Neb IH 1 ampul TIDRT ANG Administration Apixaban 10 mg 09/26/20 22:00 Apixaban 5 Mg Tab PO 10/03/20 10:01 Q12HR ANG Protocol Apixaban 5 mg 10/03/20 22:00 Apixaban 5 Mg Tab PO Q12HR ANG Protocol Aspirin 81 mg 09/27/20 10:00 Aspirin Ec 81 Mg Tab PO QDAY ANG Atorvastatin Calcium 40 mg 09/24/20 22:00 09/25/20 22:14 Atorvastatin 40 Mg Tab PO 40 mg QHS ANG Administration Dextrose 0 ml 09/24/20 05:09 Dextrose 50% In Water (25gm) 50 Ml Syringe IV Q30MIN PRN Hypoglycemia Protocol Famotidine 20 mg 09/24/20 10:00 09/26/20 09:17 Famotidine 20 Mg Tab PO 20 mg BID ANG Administration Hydralazine HCl 10 mg 09/24/20 11:00 09/26/20 04:40 Hydralazine 20 Mg/1 Ml Inj IV 10 mg Q4H PRN Administration Hypertension Sodium Chloride 500 mls @ 50 mls/hr 09/26/20 13:00 09/26/20 13:26 Nacl 0.9% 500 Ml IV 09/26/20 22:59 50 mls/hr ONCE ONE Administration Insulin Human Lispro 0 unit 09/24/20 07:30 09/26/20 16:38 Insulin Lispro 100 Unit/Ml SUB-Q Not Given ACHS [facility] Protocol Isosorbide Mononitrate 30 mg 09/26/20 12:00 09/26/20 12:22 Isosorbide Mononitrate Er 30 Mg Tab PO 30 mg QDAY ANG Administration Lisinopril 5 mg 09/26/20 10:00 09/26/20 09:17 Lisinopril 5 Mg Tab PO 5 mg QDAY ANG Administration Metoprolol Tartrate 25 mg 09/25/20 11:02 09/26/20 09:18 Metoprolol Tartrate 25 Mg Tab PO 25 mg BID ANG Administration Morphine Sulfate 2 mg 09/24/20 05:09 09/25/20 17:55 Morphine 2 Mg/1 Ml Inj IV 2 mg Q5MIN PRN Administration Chest Pain Ondansetron HCl 4 mg 09/24/20 05:09 Ondansetron 4 Mg/2 Ml Inj IV Q8H PRN Nausea And Vomiting Sodium Chloride 10 ml 09/24/20 10:00 09/26/20 13:25 Sodium Chloride 0.9% 10 Ml Flush Syringe IV 10 ml BID ANG Administration Sodium Chloride 10 ml 09/24/20 05:09 Sodium Chloride 0.9% 10 Ml Flush Syringe IV PRN PRN LINE FLUSH Tramadol HCl 50 mg 09/24/20 05:09 09/26/20 04:40 Tramadol 50 Mg Tab PO 50 mg Q6H PRN Administration Pain, Moderate (4-6) Nutrition/Malnutrition Assess - Dietary Evaluation Nutrition/Malnutrition Findings: Nutrition Notes Start: 09/24/20 11:50 Freq: Status: Active Protocol: Document 09/25/20 11:18 LP (Rec: 09/25/20 11:45 LP [id number]) Nutrition Notes Initial or Follow up Brief Note Subjective/Other Information Pt states eating well. Food preferences. Pt denies need for education. Nutrition Intervention Revisit per MD consult or patient Sign Off request:
[2020-09-26] MEDS: APIXABAN 5 MG TAB PO SCH (21:34)
[2020-09-27 05:23] LABS: Hemoglobin 13.1 gm/dl (10.1-14.3); Mean Corpuscular HGB Conc 34 % (30-34); Mean Corpuscular Volume 91 fl (79-97); Platelet Count 410 K/mm3 (140-440); Red Blood Count 4.29 M/mm3 (3.65-5.03)
[2020-09-27 05:33] LABS: INR 1.07 (0.87-1.13)
[2020-09-27 05:38] LABS: Partial Thromboplastin Time 81.2 Sec. (24.2-36.6)
[2020-09-27 05:39] LABS: Calcium 7.6 mg/dL (8.4-10.2)
[2020-09-27] MEDS: traMADol 50 MG TAB PO PRN ×2 (07:01→20:00)
[2020-09-27] MEDS: INSULIN LISPRO 100 UNIT/ML SUB-Q SCH ×4 (07:30→23:08)
[2020-09-27] MEDS: IPRATROPIUM/ALBUTEROL SULFATE 3 ML AMPUL.NEB IH SCH ×3 (08:00→20:12)
[2020-09-27] MEDS: ASPIRIN EC 81 MG TAB PO SCH (09:59)
[2020-09-27] MEDS: FAMOTIDINE 20 MG TAB PO SCH ×2 (10:00→20:59)
[2020-09-27] MEDS: APIXABAN 5 MG TAB PO SCH ×2 (10:01→20:59)
[2020-09-27] MEDS: METOPROLOL TARTRATE 25 MG TAB PO SCH ×2 (10:02→23:09)
[2020-09-27] MEDS: LISINOPRIL 5 MG TAB PO SCH (10:02)
[2020-09-27] MEDS: HYPROMELLOSE 0.5% OPHTH SOLN 15 ML OU PRN ×3 (10:10→19:56)
--- NOTE | 2020-09-27 10:59 | Progress Note ---
Assessment and Plan Assessment and plan: -- COVID-19 test negative 09/24/2020 --Pulmonary embolism; Current Visit: Yes Status: Acute s/p heparin drip transitioned to Eliquis per protocol 10 mg twice a day for 14 days followed by 5 mg twice a day Closely monitor for any evidence of bleeding Patient's lower extremity venous Doppler negative for DVT --Non-ST elevation [place] ; Current Visit: Yes Status: Acute Aspirin 325 mg p.o. daily. Beta-blockers ,Lipitor 40 mg p.o. daily. Nitroglycerin as needed. DC heparin drip Continue current management Cardiology not planning any procedures --Elevated D-dimers; Current Visit: Yes Status: Acute CTA chest positive for PE, venous Doppler negative for DVT -- Acute respiratory failure with hypoxia; Current Visit: Yes Status: Acute Oxygen via nasal cannula 3 L/min. nebulizer Levaquin 750 mg IV daily. Steroid. COVID-19 test negative --Left lower lobe pneumonia Current Visit: Yes Status: Acute Procalcitonin is low , will continue empiric antibiotics for now per ID oxygen as needed.Follow cultures supportive care --Hypertension/uncontrolled Current Visit: Yes Status: Acute Uncontrolled this morning , continue all the current antihypertensives Closely monitor blood pressures Adjust the medications as needed hydralazine 10 mg IV every 6 hours as needed. --Dyslipidemia; Current Visit: Yes Status: Acute Low-cholesterol diet, statin. --Obesity; BMI 33.5; Current Visit: Yes Status: Acute Patient needs diet modification , exercise as tolerated And weight reduction when medically stable --Type II diabetes Current Visit: Yes Status: Acute Accu-Chek sliding scale coverage ADA diet and insulin as needed. Diabetic education nutrition education as indicated --DVT prophylaxis Current Visit: Yes Status: Acute Heparin drip for DVT prophylaxis. Pepcid 20 mg p.o. twice daily for GI prophylaxis. Patient is a full code I discussed with transport rn Dr. Sunny Hua Is to monitor the patient and adjust the management as needed Plan of care reviewed with patient and her nurse 09/25/2020; patient is scheduled for CTA chest to rule out PE Cardiology considering left heart catheterization pending CTA chest COVID-19 negative 09/26/2020; patient has pulmonary embolism, received heparin drip Today with transition to Eliquis p.o. per protocol Closely monitor Hospitalist Physical - Constitutional Vitals: Temp Pulse Resp BP Pulse Ox 99.2 F 88 16 178/84 92 09/27/20 09:49 09/27/20 10:01 09/27/20 09:49 09/27/20 10:01 09/27/20 09:49 General appearance: Present: no acute distress, well-nourished, obese HEART Score - HEART Score Troponin: Troponin T 0.353 ng/mL (0.00-0.029) H* D 09/26/20 04:12 Results - Labs CBC & Chem 7: 09/27/20 05:07 09/27/20 05:07 Labs: Laboratory Last Values WBC 8.3 K/mm3 (4.5-11.0) 09/27/20 05:07 RBC 4.29 M/mm3 (3.65-5.03) 09/27/20 05:07 Hgb 13.1 gm/dl (10.1-14.3) 09/27/20 05:07 Hct 39.0 % (30.3-42.9) 09/27/20 05:07 MCV 91 fl (79-97) 09/27/20 05:07 MCH 31 pg (28-32) 09/27/20 05:07 MCHC 34 % (30-34) 09/27/20 05:07 RDW 15.0 % (13.2-15.2) 09/27/20 05:07 Plt Count 410 K/mm3 (140-440) 09/27/20 05:07 Lymph % (Auto) 20.6 % (13.4-35.0) 09/25/20 04:14 [place] % (Auto) 10.1 % (0.0-7.3) H 09/25/20 04:14 Eos % (Auto) 0.1 % (0.0-4.3) 09/25/20 04:14 Baso % (Auto) 1.4 % (0.0-1.8) 09/25/20 04:14 Lymph # (Auto) 2.3 K/mm3 (1.2-5.4) 09/25/20 04:14 [place] # (Auto) 1.1 K/mm3 (0.0-0.8) H 09/25/20 04:14 Eos # (Auto) 0.0 K/mm3 (0.0-0.4) 09/25/20 04:14 Baso # (Auto) 0.2 K/mm3 (0.0-0.1) H 09/25/20 04:14 Seg Neutrophils % 67.8 % (40.0-70.0) 09/25/20 04:14 Seg Neutrophils # 7.6 K/mm3 (1.8-7.7) 09/25/20 04:14 PT 14.5 Sec. (12.2-14.9) 09/27/20 05:07 INR 1.07 (0.87-1.13) 09/27/20 05:07 APTT 81.2 Sec. (24.2-36.6) H* 09/27/20 05:07 D-Dimer 804.52 ng/mlDDU (0-234) H 09/24/20 01:47 Heparin Anti-Xa Level 0.38 U.I./ml (0.3-0.7) 09/26/20 04:12 Sodium 142 mmol/L (137-145) 09/27/20 05:07 Potassium 3.2 mmol/L (3.6-5.0) L 09/27/20 05:07 Chloride 105.8 mmol/L (98-107) 09/27/20 05:07 Carbon Dioxide 28 mmol/L (22-30) 09/27/20 05:07 Anion Gap 11 mmol/L 09/27/20 05:07 BUN 14 mg/dL (7-17) 09/27/20 05:07 Creatinine 1.2 mg/dL (0.6-1.2) 09/27/20 05:07 Estimated GFR 54 ml/min 09/27/20 05:07 BUN/Creatinine Ratio 12 % 09/27/20 05:07 Glucose 93 mg/dL (65-100) 09/27/20 05:07 POC Glucose 169 mg/dL (70-105) H 09/26/20 21:18 Lactic Acid 1.40 mmol/L (0.7-2.0) 09/24/20 03:37 Calcium 7.6 mg/dL (8.4-10.2) L 09/27/20 05:07 Magnesium 1.80 mg/dL (1.7-2.3) 09/27/20 05:07 Ferritin 31.5 ng/mL (10.0-200.0) 09/24/20 01:47 Total Bilirubin 0.30 mg/dL (0.1-1.2) 09/24/20 01:24 AST 15 units/L (5-40) 09/24/20 01:24 ALT 16 units/L (7-56) 09/24/20 01:24 Alkaline Phosphatase 123 units/L (35-129) 09/24/20 01:24 Lactate Dehydrogenase 344 units/L (91-180) H 09/24/20 01:47 Total Creatine Kinase 74 units/L (30-135) 09/25/20 04:14 CK-MB (CK-2) 3.0 ng/mL (0.0-4.0) 09/25/20 04:14 CK-MB (CK-2) Rel Index 4.0 (0-4) 09/25/20 04:14 Troponin T 0.353 ng/mL (0.00-0.029) H* D 09/26/20 04:12 C-Reactive Protein 3.30 mg/dL (0.00-1.30) H 09/24/20 01:47 NT-Pro-B Natriuret Pep 8271 pg/mL (0-900) H 09/24/20 01:47 Total Protein 5.9 g/dL (6.3-8.2) L 09/24/20 01:24 Albumin 2.9 g/dL (3.9-5) L 09/24/20 01:24 Albumin/Globulin Ratio 1.0 % 09/24/20 01:24 Triglycerides 123 mg/dL (2-149) 09/24/20 01:24 Cholesterol 224 mg/dL (50-199) H 09/24/20 01:24 LDL Cholesterol Direct 155 mg/dL (50-130) H 09/24/20 01:24 HDL Cholesterol 57 mg/dL (40-59) 09/24/20 01:24 Cholesterol/HDL Ratio 3.92 % 09/24/20 01:24 Procalcitonin < 0.05 ng/mL (<0.15) 09/24/20 01:47 Coronavirus (PCR) Negative (Negative) 09/24/20 Unknown Microbiology: Microbiology 09/24/20 04:06 Peripheral/Venous Blood Culture - Preliminary NO GROWTH AFTER 48 HOURS 09/24/20 03:37 Peripheral/Venous Blood Culture - Preliminary NO GROWTH AFTER 48 HOURS Hodges/IV: Voiding Method Bedside Commode Active Medications - Current Medications Current Medications: Generic Name Dose Route Start Last Admin Trade Name Freq PRN Reason Stop Dose Admin Acetaminophen 650 mg 09/24/20 05:09 Acetaminophen 325 Mg Tab PO Q4H PRN Pain MILD(1-3)/Fever >100.5/JJ Albuterol 2.5 mg 09/24/20 05:09 Albuterol 2.5 Mg/3 Ml Nebu IH Q3HRT PRN Shortness Of Breath Albuterol/Ipratropium 1 ampul 09/26/20 08:00 09/27/20 08:00 Ipratropium/Albuterol Sulfate 3 Ml Ampul.Neb IH 1 ampul TIDRT ANG Administration Apixaban 10 mg 09/26/20 22:00 09/27/20 10:01 Apixaban 5 Mg Tab PO 10/03/20 10:01 10 mg Q12HR ANG Administration Protocol Apixaban 5 mg 10/03/20 22:00 Apixaban 5 Mg Tab PO Q12HR ANG Protocol Artificial Tears 2 drops 09/27/20 08:52 09/27/20 10:10 Hypromellose 0.5% Ophth Soln 15 Ml OU 2 drops Q4H PRN Administration Dry Eye(s) Aspirin 81 mg 09/27/20 10:00 09/27/20 09:59 Aspirin Ec 81 Mg Tab PO 81 mg QDAY ANG Administration Atorvastatin Calcium 40 mg 09/24/20 22:00 09/26/20 21:35 Atorvastatin 40 Mg Tab PO 40 mg QHS ANG Administration Dextrose 0 ml 09/24/20 05:09 Dextrose 50% In Water (25gm) 50 Ml Syringe IV Q30MIN PRN Hypoglycemia Protocol Famotidine 20 mg 09/24/20 10:00 09/27/20 10:00 Famotidine 20 Mg Tab PO 20 mg BID ANG Administration Hydralazine HCl 10 mg 09/24/20 11:00 09/26/20 04:40 Hydralazine 20 Mg/1 Ml Inj IV 10 mg Q4H PRN Administration Hypertension Insulin Human Lispro 0 unit 09/24/20 07:30 09/27/20 07:30 Insulin Lispro 100 Unit/Ml SUB-Q Not Given ACHS [facility] Protocol Isosorbide Mononitrate 30 mg 09/26/20 12:00 09/27/20 10:01 Isosorbide Mononitrate Er 30 Mg Tab PO 30 mg QDAY ANG Administration Lisinopril 5 mg 09/26/20 10:00 09/27/20 10:02 Lisinopril 5 Mg Tab PO 5 mg QDAY ANG Administration Metoprolol Tartrate 25 mg 09/25/20 11:02 09/27/20 10:02 Metoprolol Tartrate 25 Mg Tab PO 25 mg BID ANG Administration Morphine Sulfate 2 mg 09/24/20 05:09 09/25/20 17:55 Morphine 2 Mg/1 Ml Inj IV 2 mg Q5MIN PRN Administration Chest Pain Ondansetron HCl 4 mg 09/24/20 05:09 Ondansetron 4 Mg/2 Ml Inj IV Q8H PRN Nausea And Vomiting Potassium Chloride 40 meq 09/27/20 10:53 Potassium Chloride Er 20 Meq Tab PO 09/27/20 10:54 ONCE ONE Sodium Chloride 10 ml 09/24/20 10:00 09/27/20 10:07 Sodium Chloride 0.9% 10 Ml Flush Syringe IV 10 ml BID ANG Administration Sodium Chloride 10 ml 09/24/20 05:09 Sodium Chloride 0.9% 10 Ml Flush Syringe IV PRN PRN LINE FLUSH Tramadol HCl 50 mg 09/24/20 05:09 09/27/20 07:01 Tramadol 50 Mg Tab PO 50 mg Q6H PRN Administration Pain, Moderate (4-6) Nutrition/Malnutrition Assess - Dietary Evaluation Nutrition/Malnutrition Findings: Nutrition Notes Start: 09/24/20 11:50 Freq: Status: Active Protocol: Document 09/25/20 11:18 LP (Rec: 09/25/20 11:45 LP [id number]) Nutrition Notes Initial or Follow up Brief Note Subjective/Other Information Pt states eating well. Food preferences. Pt denies need for education. Nutrition Intervention Revisit per MD consult or patient Sign Off request:
[2020-09-27] MEDS ORDERED: POTASSIUM CHLORIDE ER 20 MEQ TAB PO ONE (11:53)
--- NOTE | 2020-09-27 15:00 | Discharge Summary ---
Providers - Providers Date of Admission: 09/24/20 04:33 Date of discharge: 09/27/20 Attending physician: KESHIA MOSQUEDA 09/24/20 Consult to Cardiac Rehabilitation [CONS] Routine Reason For Exam: Phase I 09/24/20 03:27 Consult to Physician [CONS] Urgent Comment: Consulting Provider: ALAN HANNON Physician Instructions: Reason For Exam: Pneumonia, Covid versus bacterial 09/24/20 05:09 Consult to Cardiology [CONS] Routine Consulting Provider: KEYSHA KING Reason For Exam: Chest pain Consult to Dietitian/Nutrition [CONS] Routine Physician Instructions: Reason For Exam: Reason for Consult: Diet education 09/26/20 15:59 Physical Therapy Evaluation and Treat [CONS] Stat Comment: Reason For Exam: Eval and treat 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 Hospitalization Reason for admission: Worsening shortness of breath, worsening leg edema Condition: Stable Pertinent studies: Chest x-ray lower extremity venous Doppler echocardiogram CTA chest Hospital course: 65-year-old obese female patient with significant past medical history of renal cancer status post nephrectomy diabetes mellitus migraine headache coronary artery disease hypertension was admitted through emergency room with worsening shortness of breath lower extremity swelling and abdominal pain Patient was high suspicion for COVID-19, COVID-19 PCR was negative, isolation discontinued, appropriately being managed, evaluated by cardiology, patient has high D-dimers, CTA chest was positive for PE, lower extremity Doppler negative for DVT. Patient was initially started on heparin drip and gradually transition to Eliquis oral per protocol. Cardiology optimize the medications, feels that patient symptoms and positive troponins could be due to pulmonary embolism, and patient also did not have any cardiac symptoms, advised cardiac work-up as outpatient upon discharge Today patient is comfortable no new complaints vital signs stable, case management and PT OT evaluate the patient and recommend home health PT and home health service upon discharge Cleared by all the consultants Stable at discharge Discharge diagnosis -- COVID-19 test negative 09/24/2020 --Pulmonary embolism; --Non-ST elevation [place] ; --Elevated D-dimers; -- Acute respiratory failure with hypoxia; --Left lower lobe pneumonia --Hypertension/uncontrolled --Dyslipidemia; --Obesity; BMI 33.5; --Type II diabetes Cleared by all the consultants for discharge And follow-up as outpatient per schedule Stable at discharge Disposition: TO HOME OR SELFCARE Final Discharge Diagnosis (Prints w/discharge instructions): Pulmonary embolism. Non-ST elevation [place]. Elevated D-dimers. Acute hypoxic respiratory failure. Left lower lobe pneumonia. Hypertension. Dyslipidemia. Obesity BMI 33.5. Type 2 diabetes mellitus Time spent for discharge: 35 min Core Measure Documentation - Palliative Care Palliative Care/ Comfort Measures: Not Applicable - Core Measures Any of the following diagnoses?: DVT/PE - VTE Discharge Requirements Deep Vein Thrombosis/Pulmonary Embolism Present on Admission: Yes Has pt received <5 days of overlap therapy or INR<2.0: No (Patient is on Eliquis) Anticoagulant overlap therapy prescribed at discharge: No Contraindication No Overlap Therapy order at DC: Not Indicated (Patient is on Eliquis) Exam - Constitutional Vitals: Temp Pulse Resp BP Pulse Ox 99.2 F 88 16 178/84 93 09/27/20 09:49 09/27/20 10:01 09/27/20 09:49 09/27/20 10:01 09/27/20 10:00 General appearance: Present: no acute distress, well-nourished - EENT Eyes: Present: PERRL, EOM intact - Neck Neck: Present: supple, normal ROM - Respiratory Respiratory effort: normal Respiratory: bilateral: diminished, rhonchi, negative: rales, wheezing - Cardiovascular Rhythm: regular Heart Sounds: Present: S1 & S2 - Extremities Extremities: no ischemia Extremity abnormal: edema - Abdominal General gastrointestinal: Present: soft, non-tender, non-distended - Integumentary Integumentary: Present: clear, warm - Musculoskeletal Musculoskeletal: strength equal bilaterally, generalized weakness - Psychiatric Psychiatric: appropriate mood/affect, cooperative - Neurologic Neurologic: moves all extremities Plan Activity: advance as tolerated, fall precautions Diet: other (cardiac diet) Durable Medical Equipment Needed Upon Discharge: Oxygen (3 - 4 Lt nasal cannula oxygen as needed) Additional Instructions: Advised to follow-up with collar stitcher in 2 weeks for further evaluation of shortness of breath. You are advised to take blood thinners/Eliquis for your lung clot. If you notice any bleeding stop the medication and contact MD or go to emergency room immediately immediately. Advised use 3 lt - 4lt [place] oxygen as needed. Follow up with: PRIMARY MD KIM [Primary Care Provider] - 3-5 Days ANA M NOGUERA MD [Staff Physician] - 7 Days Prescriptions: Apixaban [Eliquis] 2 tab PO Q12HR 6 Days #12 tablet Apixaban [Eliquis] 5 mg PO Q12HR #60 tablet Aspirin EC [Halfprin EC] 81 mg PO QDAY #30 tablet ISOSORBIDE MONOnitrate [Imdur ER] 30 mg PO QDAY #30 tablet Hypromellose [Isopto Tears 0.5%] 2 drops OU Q4H PRN #1 bottle PRN Reason: Dry Eye(S) AtorvaSTATin [Lipitor] 40 mg PO QHS #30 tablet Metoprolol [Lopressor TAB] 25 mg PO BID #60 tablet Famotidine [Pepcid] 20 mg PO BID #60 tablet lisinopriL [Zestril TAB] 5 mg PO QDAY #30 tablet
[2020-09-27] MEDS: hydrALAZINE 20 MG/1 ML INJ IV PRN (17:14)
--- NOTE | 2020-09-27 17:17 | Progress Note ---
Assessment and Plan Plan for ischemic eval as an outpatient. Otherwise no objections to discharge with home health services from a Cardiology standpoint. Recommend follow-up with Primary Accounts Manager within 1-2 weeks of discharge. Pt seen in conjunction with Dr. Jack, who agrees with the assessment and plan of care. - Patient Problems (1) Acute pulmonary embolism Current Visit: Yes Status: Acute (2) Cardiomyopathy Current Visit: Yes Status: Acute (3) Hypertension Current Visit: Yes Status: Chronic Qualifiers: Hypertension type: essential hypertension Qualified Code(s): I10 - Essential (primary) hypertension (4) DM2 (diabetes mellitus, type 2) Current Visit: Yes Status: Chronic (5) H/O renal cell cancer Current Visit: Yes Status: Chronic Subjective Date of service: 09/27/20 Principal diagnosis: PE Interval history: Resting comfortably in bed upon exam. Denies chest pain, SOB, or any additional cardiac complaints. Tele reviewed - SR 70-80s, no events. Objective Last Vital Signs Temp 98.7 F 09/27/20 17:01 Pulse 89 09/27/20 17:14 Resp 22 09/27/20 17:01 BP 182/91 09/27/20 17:14 Pulse Ox 91 09/27/20 17:01 - Physical Examination General: No Apparent Distress HEENT: Positive: EOMI, Normocephaly, Mucus Membranes Moist Neck: Positive: neck supple, trachea midline. Negative: JVD/HJR Cardiac: Positive: Reg Rate and Rhythm, S1/S2. Negative: Audible Murmur Lungs: Positive: clear to auscultation (bilaterally) Neuro: Positive: Grossly Intact Abdomen: Positive: Soft. Negative: Tender Skin: Negative: Rash Musculoskeletal: No Pain Extremities: Present: lower extr. pulses. Absent: edema - Labs and Meds Coagulation 09/27/20 Range/Units 05:07 PT 14.5 (12.2-14.9) Sec. INR 1.07 (0.87-1.13) APTT 81.2 H* (24.2-36.6) Sec. CBC 09/27/20 Range/Units 05:07 WBC 8.3 (4.5-11.0) K/mm3 RBC 4.29 (3.65-5.03) M/mm3 Hgb 13.1 (10.1-14.3) gm/dl Hct 39.0 (30.3-42.9) % Plt Count 410 (140-440) K/mm3 Comprehensive Metabolic Panel 09/27/20 Range/Units 05:07 Sodium 142 (137-145) mmol/L Potassium 3.2 L (3.6-5.0) mmol/L Chloride 105.8 (98-107) mmol/L Carbon Dioxide 28 (22-30) mmol/L BUN 14 (7-17) mg/dL Creatinine 1.2 (0.6-1.2) mg/dL Glucose 93 (65-100) mg/dL Calcium 7.6 L (8.4-10.2) mg/dL - Imaging and Cardiology EKG: report reviewed, image reviewed Echo: report reviewed (09/24/2020 - EF 35-40%, severe hypokinesis of the anterolateral & anterior wall, mild-mod concentric LVH, RV mildly dilated, mod left pleural effusion) - Telemetry EKG Rhythm: Sinus Rhythm - EKG Sinus rhythms and dysrhythmias: sinus rhythm Ventricular dysrhythmias: ventricular premature com Repolarization changes or abnormalities: nonspecific abnormality, ST segment, and/or T wave, Q-T interval prolongation
[2020-09-28 04:56] VITALS: BP 179/78
[2020-09-28 06:15] LABS: Hematocrit 40.1 % (30.3-42.9); Hemoglobin 12.9 gm/dl (10.1-14.3); Mean Corpuscular HGB Conc 32 % (30-34); Mean Corpuscular Volume 91 fl (79-97); Platelet Count 422 K/mm3 (140-440); Red Blood Count 4.43 M/mm3 (3.65-5.03)
[2020-09-28] MEDS: INSULIN LISPRO 100 UNIT/ML SUB-Q SCH (08:00)
[2020-09-28] MEDS: IPRATROPIUM/ALBUTEROL SULFATE 3 ML AMPUL.NEB IH SCH (08:18)
[2020-09-28] MEDS: ASPIRIN EC 81 MG TAB PO SCH (09:59)
[2020-09-28] MEDS: FAMOTIDINE 20 MG TAB PO SCH (09:59)
[2020-09-28] MEDS: APIXABAN 5 MG TAB PO SCH (09:59)
[2020-09-28] MEDS: LISINOPRIL 5 MG TAB PO SCH (09:59)
[2020-09-28] MEDS: METOPROLOL TARTRATE 25 MG TAB PO SCH (09:59)
[2020-09-28] MEDS ORDERED: METOPROLOL TARTRATE 25 MG TAB PO SCH ×2 (10:00→22:00)
--- NOTE | 2020-09-28 10:06 | Progress Note ---
Assessment and Plan Awaiting home O2 arrangements. Will optimize antihypertensive regimen in the meantime. Plan for ischemic eval as an outpatient. Otherwise no objections to discharge with home health services from a Cardiology standpoint. Recommend follow-up with Primary Improvement Advisor within 1-2 weeks of discharge. Pt seen in conjunction with Dr. Jack, who agrees with the assessment and plan of care. - Patient Problems (1) Acute pulmonary embolism Current Visit: Yes Status: Acute (2) Cardiomyopathy Current Visit: Yes Status: Acute (3) Hypertension Current Visit: Yes Status: Chronic Qualifiers: Hypertension type: essential hypertension Qualified Code(s): I10 - [place] tial (primary) hypertension (4) DM2 (diabetes mellitus, type 2) Current Visit: Yes Status: Chronic (5) H/O renal cell cancer Current Visit: Yes Status: Chronic Subjective Date of service: 09/28/20 Principal diagnosis: PE Interval history: No complaints. BP elevated. Tele reviewed - SR 70s w/occasional PACs & PVCs, no events. Objective Last Vital Signs Temp 98.5 F 09/28/20 04:53 Pulse 73 09/28/20 09:59 Resp 20 09/28/20 08:18 BP 179/78 09/28/20 09:59 Pulse Ox 95 09/28/20 08:21 - Physical Examination General: No Apparent Distress HEENT: Positive: EOMI, Normocephaly, Mucus Membranes Moist Neck: Positive: neck supple, trachea midline. Negative: JVD/HJR Cardiac: Positive: Reg Rate and Rhythm, S1/S2 Lungs: Positive: clear to auscultation (bilaterally) Neuro: Positive: Grossly Intact Abdomen: Positive: Soft. Negative: Tender Skin: Negative: Rash Musculoskeletal: No Pain Extremities: Present: lower extr. pulses. Absent: edema - Labs and Meds CBC 09/28/20 Range/Units 05:42 WBC 7.6 (4.5-11.0) K/mm3 RBC 4.43 (3.65-5.03) M/mm3 Hgb 12.9 (10.1-14.3) gm/dl Hct 40.1 (30.3-42.9) % Plt Count 422 (140-440) K/mm3 Comprehensive Metabolic Panel 09/28/20 Range/Units 05:42 Potassium 3.8 (3.6-5.0) mmol/L - Imaging and Cardiology EKG: report reviewed, image reviewed Echo: report reviewed (09/24/2020 - EF 35-40%, severe hypokinesis of the anterolateral & anterior wall, mild-mod concentric LVH, RV mildly dilated, mod left pleural effusion) - Telemetry EKG Rhythm: Sinus Rhythm - EKG Sinus rhythms and dysrhythmias: sinus rhythm Ventricular dysrhythmias: ventricular premature com Repolarization changes or abnormalities: nonspecific abnormality, ST segment, and/or T wave, Q-T interval prolongation
[2020-09-28] MEDS ORDERED: METOPROLOL TARTRATE 50 MG TAB PO SCH (22:00)
[2020-10-03] MEDS ORDERED: APIXABAN 5 MG TAB PO SCH (22:00)
== END 2020-09-28 11:32 | disposition home or self-care (01) | DRG 280 ==
LOC: ED 00:01 → 3A 04:33
PROVIDERS: ADMIT Hospitalist; ATTEND Internal Medicine
DX: I21.4 Non-ST elevation (NSTEMI) myocardial infarction (principal); J18.1 Lobar pneumonia, unspecified organism; J96.01 Acute respiratory failure with hypoxia; I26.99 Other pulmonary embolism without acute cor pulmonale; J90 Pleural effusion, not elsewhere classified; I42.9 Cardiomyopathy, unspecified; R77.8 Other specified abnormalities of plasma proteins; Z20.822 Contact with and (suspected) exposure to COVID-19; G43.909 Migraine, unspecified, not intractable, without status migrainosus; I25.10 Atherosclerotic heart disease of native coronary artery without angina pectoris; E78.5 Hyperlipidemia, unspecified; E66.9 Obesity, unspecified; N18.9 Chronic kidney disease, unspecified; E11.22 Type 2 diabetes mellitus with diabetic chronic kidney disease; Z85.048 Personal history of other malignant neoplasm of rectum, rectosigmoid junction, and anus; Z88.0 Allergy status to penicillin; I25.2 Old myocardial infarction; Z90.5 Acquired absence of kidney; Z68.33 Body mass index [BMI] 33.0-33.9, adult
CPT/HCPCS: 36415; 71045; 71275; 80048; 80053; 80061; 82140; 82550; 82553; 82728; 82947; 82962; 83615; 83735; 83880; 84132; 84145; 84484; 85025; 85027; 85379; 85520; 85610; 85730; 86140; 87040; 93005; 93306; 93970; 94640; 96374; 99406; G0378; A9270-GY; J0360; J1100; J1644; J1815; J1940; J1956; J2270; J3480; J7040; Q9967; U0003

== ENCOUNTER 2020-10-14 19:10 | Emergency (ER) | payer MEDICARE | END 2020-10-14 20:00 | disposition left against medical advice (07) | LOC: ED 19:10 | DX: I10 Essential (primary) hypertension (principal); Z53.21 Procedure and treatment not carried out due to patient leaving prior to being seen by health care provider ==